=== PATIENT | female | born 1945 | race Caucasian/White ===

== ENCOUNTER 2017-01-30 11:46 | Inpatient (IN) | payer OTHER ==
[~2017-01-30 11:46] MED LIST: CHLORHEXIDINE GLUC HIBICLENS 118 ML BTL TP ONE; DEXAMETHASONE 10 MG/ML VIAL IVP ONE; ceFAZolin 2 GM/DEXTROSE 100 ML IV ONE
[2017-01-30] MEDS ORDERED: CEFAZOLIN 2 GM/DEXTROSE/100 ML BAG IV ONE (11:59)
[2017-01-30] MEDS ORDERED: DEXAMETHASONE 10 MG/ML VIAL ONE (12:00)
[2017-01-30] MEDS ORDERED: LIDOCAINE 1% 5 ML SDV ID PRN (12:34)
[2017-01-30] MEDS ORDERED: LR 1,000 ML IV ONE (12:34)
[2017-01-30 12:53] LABS: % IMMATURE GRANULYOCYTES 0.7 % (0.0-1.1); ABSOLUTE IMMATURE GRANULOCYTES 0.02 10^3/uL (0.00-0.10); ADD DIFF? NO; ADD MORPH? NO; ADD SCAN? NO; ATYPICAL LYMPHOCYTE FLAG 20 (0-99); FRAGMENT RBC FLAG 20 (0-99); HEMATOCRIT 42.3 % (38.0-47.0); HEMOGLOBIN 13.6 g/dL (12.6-16.3); LEFT SHIFT FLG 10 (0-99); LIPEMIA HEMOLYSIS FLAG 80 (0-99); MEAN CELL HEMOGLOBIN 29.1 pg (27.9-34.1); MEAN CELL HEMOGLOBIN CONCENTR. 32.2 g/dL (32.4-36.7); MEAN CELL VOLUME 90.4 fL (81.5-99.8); MEAN PLATELET VOLUME 12.1 fL (8.7-11.7); PLATELET CLUMPS FLAG 20 (0-99); PLATELET COUNT 136 10^3/uL (150-400); RED BLOOD CELL COUNT 4.68 10^6/uL (4.18-5.33); RED CELL DISTRIBUTION WIDTH 15.9 % (11.5-15.2)
[2017-01-30] MEDS ORDERED: THROMBIN (RECOMBINANT) 5,000 UNIT VIAL TP ONE (13:35)
[2017-01-30] MEDS ORDERED: BUPIVACAINE/EPI 0.25% 30 ML SDV ONE (13:35)
[2017-01-30] MEDS ORDERED: BUPIVACAINE 0.25% 30 ML SDV ONE (13:35)
[2017-01-30] MEDS ORDERED: BACITRACIN 50,000 UNITS/10 ML SYR IRR ONE (13:36)
[2017-01-30] MEDS ORDERED: MIDAZOLAM 2 MG/2 ML VIAL ONE (13:45)
[2017-01-30] MEDS ORDERED: PROPOFOL 200 MG/20 ML VIAL ONE ×2 (13:50→14:28)
[2017-01-30] MEDS ORDERED: HYDROmorphONE/DILAUDID 2 MG/ML INJ ONE (13:50)
[2017-01-30] MEDS ORDERED: LIDOCAINE 2% 5 ML SDV ONE (13:51)
[2017-01-30] MEDS ORDERED: ONDANSETRON 4 MG/2 ML VIAL ONE (15:09)
[2017-01-30] MEDS ORDERED: SUCCINYLCHOLINE CHLORIDE*ANESTHESIA ONLY*200 MG/10 ML SYR IVP ONE (15:09)
[2017-01-30] MEDS ORDERED: SURGIFLO MATRIX KIT WITH THROMBIN TP ONE (15:29)
[2017-01-30] MEDS ORDERED: LACTULOSE 20 GM/30 ML UDCUP PO PRN (16:13)
[2017-01-30] MEDS ORDERED: HYDROmorphONE/DILAUDID 1 MG/ML SYR IVP PRN (16:13)
[2017-01-30] MEDS ORDERED: ONDANSETRON 4 MG/2 ML VIAL IVP PRN (16:13)
[2017-01-30] MEDS ORDERED: BISACODYL 10 MG SUPP PR PRN (16:13)
[2017-01-30] MEDS ORDERED: ONDANSETRON DISINTEGRATING 4 MG TAB PO PRN (16:13)
[2017-01-30] MEDS ORDERED: diphenhydrAMINE 25 MG CAP PO PRN (16:13)
[2017-01-30] MEDS ORDERED: DIAZEPAM 10 MG/2 ML SYR IVP PRN (16:13)
[2017-01-30] MEDS ORDERED: MAGNESIUM HYDROXIDE 30 ML UDCUP PO PRN (16:13)
[2017-01-30] MEDS ORDERED: METHOCARBAMOL 750 MG TAB PO PRN (16:13)
[2017-01-30] MEDS ORDERED: NS W/ 20 KCl/L 1,000 ML IV SCH (16:15)
--- NOTE | 2017-01-30 16:19 | POSTOPPROG ---
Post Op Note Date of Operation: 01/30/17 Surgeon: Yuri [facility] [employer] Therapist: Jose M Anesthesiologist: Tatiana Anesthesia: GET(General Endotracheal) Pre-op Diagnosis: cervical stenosis Post-op Diagnosis: same Indication: mylepathy Procedure: C4/5, 5/6 ACDF Findings: DJD/stenosis Inf/Abcess present in the surg proc area at time of surgery?: No EBL: Minimal Complications: None Drains: Eduard Monet
--- NOTE | 2017-01-30 16:20 | SOAPPROG ---
CLAUDIA Progress Note Assessment/Plan: Assessment: 71 yo F sp C4/5, 5/6 ACDF Plan: stable hard collar for 6 weeks x-rays in am please call with neuro changes 01/30/17 16:19 Subjective: + neck pain, no arm pain. Objective: Laboratory Results 01/30/17 12:37 awake, alert PERRL, no facial droop JAMES x 4 + light touch ICD10 Worksheet Patient Problems: Problems Problem Status Onset Fusion of spine of cervical region Acute - ICD10 Problem Qualifiers (1) Fusion of spine of cervical region
[2017-01-30] MEDS ORDERED: fentaNYL 100 MCG/2 ML INJ ONE (16:31)
[2017-01-30] MEDS ORDERED: HYDROmorphONE/DILAUDID 1 MG/ML SYR ONE (16:31)
[2017-01-30] MEDS ORDERED: DIAZEPAM 10 MG/2 ML SYR ONE (16:47)
[2017-01-30] MEDS: traMADol 50 MG TAB PO SCH ×2 (17:44→20:43)
[2017-01-30] MEDS: DIAZEPAM 5 MG TAB PO PRN ×2 (17:44→23:48)
--- NOTE | 2017-01-30 19:49 | GOP ---
[f rep st] OPERATIVE REPORT DATE OF OPERATION: 01/30/2017 SURGEON: Yuri Miranda MD EDGE BASTER: Mitchel Salguero PA-C. ANESTHESIA: General endotracheal. PREOPERATIVE DIAGNOSIS: 1. Severe multilevel cervical spondylitic myelopathy. 2. Multilevel cervical degenerative disk disease and disk herniations with severe central canal lanette nosis and spinal cord compression. POSTOPERATIVE DIAGNOSIS: 1. Severe multilevel cervical spondylitic myelopathy. 2. Multilevel cervical degenerative disk disease and disk herniations with severe central canal lanette nosis and spinal cord compression. PROCEDURE PERFORMED: Partial C5 vertebral corpectomy with complete C4-5 and C5-6 anterior cervical diskectomy and arthrodesis with 2 structural PEEK interbody spacers and a local autograft. Placemen t of an L and K CastleLoc-P anterior cervical plate from C4 through C6. Use of intraoperative micro scopy and fluoroscopy. FINDINGS: ESTIMATED BLOOD LOSS: 100 cc. INDICATIONS: The patient is a 71-year-old woman with progressive myelopathic symptoms and multileve l cervical degenerative disk disease and disk herniations causing severe central canal stenosis and spinal cord compression. She presents now for multilevel cervical decompression stabilization. DESCRIPTION OF PROCEDURE: After informed consent was obtained, the patient was taken to the operati ng room and placed in the supine neutral position under her own control. Baseline neuro monitoring potentials were obtained as soon as the patient was intubated without any manipulation of her neck. After the baselines were obtained, the patient was positioned with the Halter retractor system and the anterior cervical region was prepped and draped in sterile fashion. A horizontal incision was then created at the level of the C5 vertebral body after fluoroscopic loca lization. This was carried through the platysmal layer using the monopolar electrocautery and haley ed in the avascular plane between the sternocleidomastoid and carotid sheath laterally and the strap muscles, trachea, and esophagus medially down to the prevertebral fascia, which was carefully incis ed with Metzenbaum scissors. The C4-5 and C5-6 interspaces were identified and re-verified using th e intraoperative fluoroscopy. Following this, complete diskectomies were performed with the 15 blade scalpel and the straight-angl ed curettes as well as the Kerrison rongeurs. There were very large osteophytes that required exten sive drilling and removal with the Kerrison rongeurs. There were very large posteriorly protruding osteophytes as well as the anteriorly protruding ones and these were removed along with posterior lo ngitudinal ligament. Approximately 50% of the C5 vertebral body was removed due to drilling at the superior and inferior endplates for a partial C5 vertebral corpectomy. Quite a bit of C4 and C6 wer e also removed, but not enough to be 50%. Following adequate decompression, the epidural space were copiously irrigated with antibiotic irriga tion. Meticulous hemostasis was achieved. Note that the patient was more oozy than normal and I us ed Floseal in addition the Gel-Foam soaked in thrombin for hemostasis. After preparation of the endplates, the interspaces were gently packed with the appropriately sized lordotically fashioned structural PEEK interbody spacers which were also packed with the local autog raft from the partial corpectomy and osteophytectomy to the center of the graft. Following verifica tion of good position using biplanar fluoroscopy, the distraction was removed and an appropriately s ized L and K CastleLoc-P anterior cervical plate was placed and secured with self-drilling screws. Following re-verification of good position of the plate screws and interbody spacers, the locking me chanisms were engaged. A drain was placed and the wound was infiltrated with the study drug for the dysphagia study. Half of it was placed at this point. The platysma was then closed with interrupted Vicryl sutures and th e remainder was injected at that point. The skin was then closed using a running Monocryl followed by Steri-Strips on the skin. COMPLICATIONS: None. DISPOSITION: The patient is currently in the process of being repositioned for extubation. Please note that the patient had very soft bone with not too great of screw purchase and because of this, I will place her in a hard collar for 6 weeks as well as a magnetic bone stimulator. /[id number]/MODL
[2017-01-30] MEDS: CETIRIZINE 10 MG TAB PO SCH (20:42)
[2017-01-30] MEDS: PREGABALIN 75 MG CAP PO SCH (20:42)
[2017-01-30] MEDS: HYDROCODONE/APAP 10/325 TAB PO PRN (20:42)
[2017-01-30] MEDS: POLYETHYLENE GLYCOL 3350 17 GM PKT PO SCH (20:44)
[2017-01-30] MEDS: SENNOSIDES/DOCUSATE SODIUM TAB PO SCH (20:44)
[2017-01-30] MEDS: FAMOTIDINE 20 MG/NACL 50 ML IV SCH (20:56)
[2017-01-30] MEDS ORDERED: traZODone 100 MG TAB PO SCH (21:00)
[2017-01-30] MEDS ORDERED: MELATONIN 3 MG TAB PO SCH (21:00)
[2017-01-30] MEDS: TACROLIMUS 1 MG CAP PO SCH (21:25)
[2017-01-30] MEDS: MYCOPHENOLATE SODIUM 360 MG PO SCH (21:26)
[2017-01-30] MEDS: ACETAMINOPHEN 325 MG TAB PO PRN (23:49)
[2017-01-31] MEDS: HYDROCODONE/APAP 10/325 TAB PO PRN ×2 (01:30→05:43)
[2017-01-31] MEDS: traMADol 50 MG TAB PO SCH ×3 (05:39→15:45)
[2017-01-31] MEDS: POLYETHYLENE GLYCOL 3350 17 GM PKT PO SCH ×3 (05:59→16:53)
[2017-01-31] MEDS: PREGABALIN 75 MG CAP PO SCH (08:24)
[2017-01-31] MEDS: SENNOSIDES/DOCUSATE SODIUM TAB PO SCH (08:24)
[2017-01-31] MEDS: OXYCODONE/APAP 5/325 TAB PO PRN ×4 (08:25→19:30)
[2017-01-31] MEDS: MYCOPHENOLATE SODIUM 360 MG PO SCH (08:35)
[2017-01-31] MEDS: FAMOTIDINE 20 MG/NACL 50 ML IV SCH (08:36)
--- NOTE | 2017-01-31 08:44 | SOAPPROG ---
SOAP Progress Note Assessment/Plan: Assessment: 71 yo F POD #1 C4/5, 5/6 ACDF Plan: stable hard collar for 6 weeks PT/OT likely remove drain today work on DC today x-rays today please call with neuro changes patient seen by Dr Palacio 01/30/17 16:19 01/31/17 08:43 Subjective: + neck pain and pain in posterior shoulders, no arm pain, no weakness Objective: Vital Signs Temp Pulse Resp BP Pulse Ox 37.0 C 74 17 136/73 H 94 01/31/17 08:16 01/31/17 08:16 01/31/17 08:16 01/31/17 08:16 01/31/17 08:16 Laboratory Results 01/30/17 12:37 01/30/17 01/31/17 02/01/17 05:59 05:59 05:59 Intake Total 1750 Output Total 450 Balance 1300 AAOX4, +FC PERRL, EOMI, no facial droop 5/5 + light touch C/D/I ICD10 Worksheet Patient Problems: Problems Problem Status Onset Fusion of spine of cervical region Acute - ICD10 Problem Qualifiers (1) Fusion of spine of cervical region
[2017-01-31] MEDS: TACROLIMUS 1 MG CAP PO SCH (08:48)
[2017-01-31] MEDS ORDERED: PANTOPRAZOLE SODIUM 40 MG TAB PO SCH (09:00)
[2017-01-31] MEDS ORDERED: predniSONE 5 MG TAB PO SCH (09:00)
[2017-01-31 11:59] VITALS: RESP 14
[2017-01-31] MEDS: ACETAMINOPHEN 325 MG TAB PO PRN (12:28)
[2017-01-31 15:55] VITALS: BP 125/65; PULSE 88; TEMP 98.6; O2SAT 92
[2017-01-31] MEDS: CETIRIZINE 10 MG TAB PO SCH (16:59)
[2017-02-02] MEDS ORDERED: ENOXAPARIN 40 MG/0.4 ML SYR SC SCH (09:00)
== END 2017-01-31 20:11 | disposition home or self-care (01) | DRG 472 ==
LOC: F3N 11:46
PROVIDERS: ADMIT Neurological Surgery; ATTEND Neurological Surgery
PROC: 0RB30ZZ Excision of Cervical Vertebral Disc, Open Approach (ICD-10-PCS; principal; 2017-01-30 14:15)
PROC: 0RG20J0 Fusion of 2 or more Cervical Vertebral Joints with Synthetic Substitute, Anterior Approach, Anterior Column, Open Approach (ICD-10-PCS; principal; 2017-01-30 14:15)
PROC: 00NW0ZZ Release Cervical Spinal Cord, Open Approach (ICD-10-PCS; principal; 2017-01-30 14:15)
PROC: 0PB30ZZ Excision of Cervical Vertebra, Open Approach (ICD-10-PCS; principal; 2017-01-30 14:15)
PROC: 0RG20A0 Fusion of 2 or more Cervical Vertebral Joints with Interbody Fusion Device, Anterior Approach, Anterior Column, Open Approach (ICD-10-PCS; principal; 2017-01-30 14:15)
DX: M50.30 Other cervical disc degeneration, unspecified cervical region (principal); M50.021 Cervical disc disorder at C4-C5 level with myelopathy; M47.12 Other spondylosis with myelopathy, cervical region; M48.02 Spinal stenosis, cervical region; M51.37 Other intervertebral disc degeneration, lumbosacral region; Z94.0 Kidney transplant status
CPT/HCPCS: 97161-GP; 97166-GO; 97535-GO; C1713; G8978-GP-CI; G8979-GP-CI; G8980-GP-CI; G8987-GO-CI; G8988-GO-CI; J0330; J0690; J1170; J2250; J2405; J2704; J3010; J7507

== ENCOUNTER 2017-07-20 06:17 | Inpatient (IN) | payer OTHER ==
[2017-07-20] MEDS ORDERED: LR 1,000 ML IV ONE (06:31)
[2017-07-20] MEDS ORDERED: LIDOCAINE 1% 2 ML INJ ID PRN (06:31)
--- NOTE | 2017-07-20 06:51 | PDANEPAE ---
ANE History of Present Illness lumbar DDD, spinal stenosis ANE Past Medical History - Cardiovascular History Hx Hypertension: No Hx Arrhythmias: No Hx Chest Pain: No Hx Coronary Artery / Peripheral Vascular Disease: No Hx CHF / Valvular Disease: No Hx Palpitations: No Cardiovascular History Comment: occassional heart murmur - Pulmonary History Hx COPD: No Hx Asthma/Reactive Airway Disease: No Hx Recent Upper Respiratory Infection: No Hx Oxygen in Use at Home: No Hx Sleep Apnea: Yes Pulmonary History Comment: h/o PNA x3 in 20 months [id number]. viral infection 2016 - Neurologic History Hx Cerebrovascular Accident: No Hx Seizures: No Hx Dementia: No Neurologic History Comment: Balance issue - Endocrine History Hx Diabetes: No Endocrine History Comment: elevated blood sugar 2000, weight was 80lbs higher - Renal History Hx Renal Disorders: Yes Renal History Comment: kidney transplant 2015 - Liver History Hx Hepatic Disorders: No - Neurological & Psychiatric Hx Hx Neurological and Psychiatric Disorders: Yes Neurological / Psychiatric History Comment: insomnia - Cancer History Hx Cancer: Yes Cancer History Comment: Melanoma nose-removed. - Congenital Disorder History Hx Congenital Disorders: No - GI History Hx Gastrointestinal Disorders: Yes Gastrointestinal History Comment: gastric bypass 2005 - Other Health History Other Health History: missing tooth. bruise easily - Chronic Pain History Chronic Pain: Yes (back pain has trouble standing) - Surgical History Prior Surgeries: kidney transplant -2015. UMBILICAL HERNIA REPAIR. tonsillectomy at 6 years old. stomach bypass 11/2005. 2 carpal tunnel surgeries 2000 bilaterally. 6 trigger finger releases. breast implant and lift and tummy tuck- mommy makeover. right shoulder surgery. 2011- knee scope. lumbar fusion l4-5 with staph infection. debridement ANE Review of Systems - Exercise capacity METS (RN): 4 METS ANE Patient History - Allergies Allergies/Adverse Reactions: No Known Allergies Allergy (Verified 01/25/17 14:11) - Home Medications Home medications: home medication list seen and reviewed Home Medications: Cetirizine [ZyrTEC 10 mg (*)] 10 mg PO HS 08/18/15 [Last Taken 07/19/17 12:00] Melatonin [Melatonin 3 MG (*)] 9 mg PO HS 08/18/15 [Last Taken 07/19/17 00:00] traMADol [Ultram 50 mg (*)] 50 mg PO QID 08/18/15 [Last Taken 07/19/17 22:00] traZODone [traZODONE 100MG (*)] 50 - 100 mg PO HS 08/18/15 [Last Taken 07/19/17] Mycophenolate Sodium [Myfortic] 360 mg PO BID 01/24/17 [Last Taken 07/19/17 00: 00] Pantoprazole Sodium [Protonix 40mg (*)] 40 mg PO DAILY 01/24/17 [Last Taken 12:00] Pregabalin [Lyrica 75mg (*)] 75 mg PO BID 01/24/17 [Last Taken 07/19/17 00:00] Tacrolimus Anhydrous [Prograf 0.5 MG (*)] 3 mg PO BID 01/24/17 [Last Taken 07/19 00:00] predniSONE 5 mg PO DAILY 01/24/17 [Last Taken 07/19/17 12:00] Jenkinjones-3 06/16/17 [Last Taken 07/16/17] Vitamin B Complex 06/16/17 [Last Taken Unknown] Vitamin D3 06/16/17 [Last Taken 07/17/17] - Smoking Hx Smoking Status: Former smoker - Family Anes Hx Family Hx Anesthesia Complications: none ANE Labs/Vital Signs - Vital Signs Height: 162.56 cm Weight: 62.596 kg ANE Physical Exam - Airway Neck exam: FROM Mallampati Score: Class 1 Mouth exam: normal dental/mouth exam - Pulmonary Pulmonary: no respiratory distress - Cardiovascular Cardiovascular: regular rate and rhythym - ASA Status ASA Status: III ANE Anesthesia Plan Anesthesia Plan: general endotracheal anesthesia Lines/Monitors: arterial line
[2017-07-20] MEDS ORDERED: THROMBIN (BOVINE) 5,000 UNIT VIAL TP ONE ×3 (07:00→12:04)
[2017-07-20] MEDS ORDERED: ceFAZolin 2 GM/DEXTROSE 100 ML IV ONE (07:00)
[2017-07-20] MEDS ORDERED: ACETAMINOPHEN 500 MG TAB PO ONE (07:00)
[2017-07-20] MEDS ORDERED: TRANEXAMIC ACID 1,000 MG in NS 100 ML IV ONE (07:00)
[2017-07-20] MEDS ORDERED: CITRATE DEXTROSE SOLN 500 ML BAG ONE ×3 (07:00→12:30)
[2017-07-20] MEDS ORDERED: morphINE PF 5 MG/10 ML INJ IT ONE (07:00)
[2017-07-20] MEDS ORDERED: GABAPENTIN 300 MG CAP PO ONE (07:00)
[2017-07-20] MEDS ORDERED: fentaNYL 100 MCG/2 ML INJ IT ONE (07:00)
[2017-07-20] MEDS ORDERED: BUPIVACAINE 0.25% 30 ML SDV ONE (07:00)
[2017-07-20] MEDS ORDERED: DEXAMETHASONE 10 MG/ML VIAL IVP ONE (07:00)
--- NOTE | 2017-07-20 07:00 | PDHPUP ---
History & Physical Update H&P update statement: This history and physical update is based on an assessment of the patient which was completed after admission or registration (within 24 hours), but prior to the surgery/procedure. H&P update: H&P reviewed & patient examined, no change in patient's condition since H&P completed
[2017-07-20] MEDS ORDERED: PROPOFOL/EMULSION 500 MG/50 ML BOTTLE IV ONE ×3 (07:01→12:40)
[2017-07-20] MEDS ORDERED: REMIFENTANIL HCL 1 MG VIAL ONE ×3 (07:01→12:27)
[2017-07-20] MEDS ORDERED: fentaNYL 100 MCG/2 ML INJ ONE ×3 (07:01→14:34)
[2017-07-20] MEDS ORDERED: PROPOFOL 200 MG/20 ML VIAL ONE (07:01)
[2017-07-20] MEDS ORDERED: BACITRACIN 50,000 UNITS/10 ML SYR IRR ONE ×3 (07:01→11:45)
[2017-07-20] MEDS ORDERED: HYDROmorphONE/DILAUDID 2 MG/ML INJ ONE (08:34)
[2017-07-20 10:03] LABS: HEMATOCRIT 33.9 % (38.0-47.0); HEMOGLOBIN 11.3 g/dL (12.6-16.3)
[2017-07-20] MEDS ORDERED: THROMBIN (BOVINE) 20,000 UNIT VIAL TP ONE ×2 (10:24→12:13)
[2017-07-20 10:27] LABS: ALBUMIN 2.9 g/dL (3.5-5.0); ASPARTATE AMINOTRANSFERASE 19 IU/L (14-46); BILIRUBIN,TOTAL 0.3 mg/dL (0.1-1.4); CARBON DIOXIDE 24 mEq/l (22-31); CHLORIDE 104 mEq/L (97-110); CREATININE 0.8 mg/dL (0.6-1.0); GLOMERULAR FILTRATION RATE > 60; GLUCOSE 96 mg/dL (70-100); LACTATE DEHYDROGENASE 265 IU/L (313-618); MAGNESIUM 1.4 mg/dL (1.6-2.3); POTASSIUM 3.7 mEq/L (3.5-5.2); SODIUM 135 mEq/L (134-144)
[2017-07-20 11:47] LABS: % IMMATURE GRANULYOCYTES 1.7 % (0.0-1.1); ABSOLUTE IMMATURE GRANULOCYTES 0.13 10^3/uL (0.00-0.10); ADD DIFF? NO; ADD MORPH? NO; ADD SCAN? NO; ATYPICAL LYMPHOCYTE FLAG 0 (0-99); FRAGMENT RBC FLAG 20 (0-99); HEMATOCRIT 32.8 % (38.0-47.0); HEMOGLOBIN 10.8 g/dL (12.6-16.3); LEFT SHIFT FLG 10 (0-99); LIPEMIA HEMOLYSIS FLAG 80 (0-99); MEAN CELL HEMOGLOBIN CONCENTR. 32.9 g/dL (32.4-36.7); MEAN CELL VOLUME 87.9 fL (81.5-99.8); MEAN PLATELET VOLUME 11.6 fL (8.7-11.7); PLATELET CLUMPS FLAG 10 (0-99); PLATELET COUNT 165 10^3/uL (150-400); RED BLOOD CELL COUNT 3.73 10^6/uL (4.18-5.33); RED CELL DISTRIBUTION WIDTH 15.1 % (11.5-15.2)
[2017-07-20 11:59] LABS: ALANINE AMINOTRANSFERASE 25 IU/L (9-52); ALBUMIN 2.8 g/dL (3.5-5.0); ALKALINE PHOSPHATASE 42 IU/L (38-126); ANION GAP 8 mEq/L (8-16); ASPARTATE AMINOTRANSFERASE 25 IU/L (14-46); BILIRUBIN,TOTAL 0.4 mg/dL (0.1-1.4); CALCIUM 8.4 mg/dL (8.5-10.4); CARBON DIOXIDE 23 mEq/l (22-31); CHLORIDE 106 mEq/L (97-110); CREATININE 0.8 mg/dL (0.6-1.0); GLOMERULAR FILTRATION RATE > 60; GLUCOSE 126 mg/dL (70-100); LACTATE DEHYDROGENASE 424 IU/L (313-618); MAGNESIUM 1.3 mg/dL (1.6-2.3); POTASSIUM 3.9 mEq/L (3.5-5.2); SODIUM 137 mEq/L (134-144); TOTAL PROTEIN 4.6 g/dL (6.3-8.2)
[2017-07-20] MEDS ORDERED: ceFAZolin 1 GM VIAL ONE (12:10)
[2017-07-20 12:42] LABS: HEMATOCRIT 35.5 % (38.0-47.0); HEMOGLOBIN 11.9 g/dL (12.6-16.3)
[2017-07-20 13:00] LABS: ALANINE AMINOTRANSFERASE 25 IU/L (9-52); ALBUMIN 2.5 g/dL (3.5-5.0); ALKALINE PHOSPHATASE 36 IU/L (38-126); ANION GAP 8 mEq/L (8-16); ASPARTATE AMINOTRANSFERASE 24 IU/L (14-46); BILIRUBIN,TOTAL 0.5 mg/dL (0.1-1.4); CALCIUM 7.9 mg/dL (8.5-10.4); CARBON DIOXIDE 21 mEq/l (22-31); CHLORIDE 108 mEq/L (97-110); CREATININE 0.8 mg/dL (0.6-1.0); GLOMERULAR FILTRATION RATE > 60; GLUCOSE 148 mg/dL (70-100); POTASSIUM 4.1 mEq/L (3.5-5.2); SODIUM 137 mEq/L (134-144); TOTAL PROTEIN 4.3 g/dL (6.3-8.2)
[2017-07-20] MEDS ORDERED: morphINE PF 5 MG/10 ML INJ ONE (13:06)
[2017-07-20] MEDS ORDERED: ALBUMIN 5% 250 ML BOTTLE IV ONE ×2 (13:16→22:16)
[2017-07-20 13:46] LABS: HEMOGLOBIN 11.9 g/dL (12.6-16.3)
[2017-07-20 13:55] LABS: INR 1.32 (0.83-1.16); PROTIME(PATIENT) 16.4 SEC (12.0-15.0)
[2017-07-20 13:56] LABS: APTT 34.9 SEC (23.0-38.0)
[2017-07-20] MEDS ORDERED: diphenhydrAMINE 25 MG CAP PO PRN (14:07)
[2017-07-20] MEDS ORDERED: LACTULOSE 20 GM/30 ML UDCUP PO PRN (14:07)
[2017-07-20] MEDS ORDERED: MAGNESIUM HYDROXIDE 30 ML UDCUP PO PRN (14:07)
[2017-07-20] MEDS ORDERED: BISACODYL 10 MG SUPP PR PRN (14:07)
[2017-07-20] MEDS ORDERED: NALOXONE HCL 0.4 MG/ML INJ IVP PRN ×2 (14:07→14:32)
[2017-07-20] MEDS ORDERED: ONDANSETRON DISINTEGRATING 4 MG TAB PO PRN (14:07)
[2017-07-20] MEDS ORDERED: ONDANSETRON 4 MG/2 ML VIAL IVP PRN ×2 (14:07→14:32)
--- NOTE | 2017-07-20 14:13 | SOAPPROG ---
SOAP Progress Note Assessment/Plan: Assessment: 71 yo F sp L1-L5 fusion with L3/4 TLIF, L4 wedge osteotomy Plan: neuro: stable to ICU for overnight observation PT/OT lovenox starts POD #1 Mauricio Malhotra to fit LSO brace please call with neuro changes 07/20/17 14:11 Subjective: + back pain, no leg pain Objective: Vital Signs Temp Pulse Resp BP Pulse Ox 36.6 C 68 14 113/68 96 07/20/17 06:58 07/20/17 06:58 07/20/17 06:58 07/20/17 06:58 07/20/17 06:58 Laboratory Results 07/20/17 13:36 07/20/17 12:32 PT 16.4 SEC (12.0-15.0) H 07/20/17 13:36 INR 1.32 (0.83-1.16) H 07/20/17 13:36 somnolent PERRL, no facial droop 5/5 + light touch ICD10 Worksheet Patient Problems: Problems Problem Status Onset Fusion of spine of lumbar region Acute Fusion of spine of cervical region Acute - ICD10 Problem Qualifiers (1) Fusion of spine of lumbar region
[2017-07-20] MEDS ORDERED: PROMETHAZINE HCL 25 MG/ML INJ IVP PRN (14:32)
[2017-07-20] MEDS ORDERED: ACETAMINOPHEN 500 MG TAB PO PRN (14:32)
--- NOTE | 2017-07-20 14:32 | POSTANESTH ---
Post Anesthetic Evaluation Cardiovascular Status: Normal, Stable Respiratory Status: Normal, Stable Level of Consciousness/Mental Status: Can Participate in Eval Pain Control: Adequate, Prn Tx Ordered Nausea/Vomiting Control: Adequate, Prn Tx Ordered Complications Possibly Related to Anesthesia: None Noted
[2017-07-20] MEDS: fentaNYL 100 MCG/2 ML INJ IVP PRN ×2 (14:36→14:45)
[2017-07-20] MEDS ORDERED: DIAZEPAM 10 MG/2 ML SYR ONE (14:49)
[2017-07-20] MEDS ORDERED: HYDROmorphONE/DILAUDID 1 MG/ML SYR ONE (15:08)
[2017-07-20] MEDS: HYDROmorphONE/DILAUDID 1 MG/ML SYR IVP PRN ×2 (15:10→15:37)
--- NOTE | 2017-07-20 15:36 | GOP ---
[f rep st] OPERATIVE REPORT DATE OF OPERATION: 07/20/2017 SURGEON: Yuri Miranda MD NEUROSURGEON: Yuri Miranda MD DIRECTOR SOFTWARE QUALITY ASSURANCE: XIMENA Arango ANESTHESIA: General endotracheal. PREOPERATIVE DIAGNOSIS: Flat back syndrome with intractable back pain secondary to loss of normal s agittal alignment, status post instrumentation and fusion in the past. Failed conservative care. 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 Failed conservative care. PROCEDURE PERFORMED: Removal of L4-5 posterior nonsegmental (pedicle screw) fixation with explorati on of spinal fusion and re-instrumentation from L1 through L5 with pedicle screws and axle device. Left-sided L2-3 and L3-4 far lateral transpedicular decompression with L2-3 and L3-4 posterior/trans foraminal lumbar interbody fusion with 2 structural PEEK interbody spacers, local autograft and bone morphogenic protein. L4 pedicle subtraction osteotomy for reduction of fixed kyphotic deformity. Use of intraoperative microscopy, fluoroscopy and computer volumetric stereotactic navigation with i ntraoperative neurophysiologic testing. Injection of intrathecal narcotic analgesics and subcutaneo us and intramuscular local anesthesia for postoperative pain control. FINDINGS: ESTIMATED BLOOD LOSS: 1200 cc INDICATIONS: The patient is a 71-year-old woman with intractable back pain, status post prior lumba r decompression and fusion. She was fused into a kyphotic position with subsequent flat back syndro me and failed conservative care with intractable back pain. She presents now for removal of the kena or hardware and extension rostrally with a decompression and stabilization with pedicle subtraction osteotomy and reduction of her fixed kyphotic deformity. DESCRIPTION OF PROCEDURE: After informed consent was obtained, the patient was taken to the operati ng room and placed in the prone position on the Eduard table. The thoracolumbosacral area was prep ped and draped in a sterile fashion. After fluoroscopic localization of correct levels, the subcuta neous and intramuscular tissues were infiltrated with local anesthesia. A midline linear incision was then created from approximately L1 through L5. This was carried down to the fascial layer, which was then incised using monopolar electrocautery and carried in the subpe riosteal plane along the spinous processes and lamina bilaterally. Note that there was an extensive amount of scar tissue that required very careful and meticulous dissection in order to avoid a CSF leak. Eventually, all areas were carefully exposed and the biplanar fluoroscopic images were sent t o the [facility] station. Using computer volumetric stereotactic navigation, pedicle screws were place d at L1, L2, L3, L4 and L5 bilaterally. Each individual screw was tested neurophysiologically with monopolar electrostimulation and interpretation of the potentials by the surgeon. Note that the kena or surgical area at L4-5 was exposed before this, and the posterior nonsegmental (pedicle screw) fix ation was carefully removed. Following placement of the pedicle screws, the microscope was brought in and the left-sided far late ral transpedicular decompressions were performed at the L2-3 and L3-4 levels. The complete diskecto mies were performed under high-power microscopy with the levels under distraction. The endplates we re carefully prepared and an appropriately sized structural PEEK interbody spacers, local autograft and bone morphogenic protein was placed in the interbody levels at L2-3 and L3-4 for posterior/trans foraminal lumbar interbody fusion at this level. The rods were then removed and following this, und er high-power microscopy, the joints were completely removed at L4-5. I had anticipated performing the osteotomy at L3-4, but the exposure was significantly less, and difficult and risky from the sta ndpoint of getting a CSF leak. There was quite a bit of scar tissue at the L3-4 level, and the dura was very stuck down. I felt that it was in the best interest of the patient to perform the wide la minectomies and facetectomies at L4-5, even though there would only be 1 point of fixation below the osteotomy at L5. I thought that the risk of getting a CSF leak or having other problems performing the osteotomy up higher was more than the screw at this point because I got very solid fixation at L5 bilaterally. Following the wide laminectomies and facetectomies bilaterally at L3, L4; the L4 pedicles were caref ully drilled out using the coarse bubba bur. This was performed in a wedge-shaped fashion and the fulcrum of intact cortical bone anteriorly along with the PEEK interbody spacer was utilized to cre ate a significant amount of lordosis by reducing the interpedicular distance posteriorly. After dri lling out the area in a wedge-shape fashion and getting ready to collapse it down, some local autogr aft along with bone morphogenic protein was placed anteriorly at the osteotomy level for the fusion. The rods were then contoured and placed, and secured for maximal lordosis. These were secured wit h locking caps and 1 axle device was placed at L1-2 in order to hopefully prevent any junctional kyp hosis and hardware failure at the upper level. Following this, the wound was copiously irrigated and with irrigation, meticulous hemostasis was ach ieved. The remaining lamina and facet joints were then extensively decorticated from L1 through L5, and the residual local autograft along with bone morphogenic protein was placed out laterally for a n L1 through L5 posterolateral fusion. A drain was placed. The subcutaneous and intramuscular tiss ues were infiltrated with local anesthesia. 200 mcg of Duramorph along with 50 mcg of fentanyl was injected intrathecally for postoperative pain control. The wound was then closed in a layered fashi on using interrupted Vicryl sutures followed by Steri-Strips on the skin. COMPLICATIONS: None. DISPOSITION: The patient was extubated and transferred to the recovery room in stable condition. /[id number]/MODL
[2017-07-20] MEDS: oxyCODONE IR 5 MG TAB PO PRN (16:44)
[2017-07-20] MEDS: morphINE PCA 30 MG/30 ML PCA IV PRN (16:46)
[2017-07-20] MEDS: NS 1,000 ML IV SCH (16:54)
[2017-07-20] MEDS: POLYETHYLENE GLYCOL 3350 17 GM PKT PO SCH ×2 (17:13→20:28)
[2017-07-20] MEDS ORDERED: predniSONE 5 MG TAB PO SCH (17:15)
[2017-07-20] MEDS: traMADol 50 MG TAB PO PRN (17:17)
[2017-07-20] MEDS: MYCOPHENOLATE SODIUM 360 MG PO SCH (17:20)
[2017-07-20] MEDS: predniSONE 5 MG TAB PO SCH (17:20)
[2017-07-20] MEDS ORDERED: TACROLIMUS 1 MG CAP PO SCH (18:00)
[2017-07-20 18:02] LABS: % IMMATURE GRANULYOCYTES 1.6 % (0.0-1.1); ABSOLUTE IMMATURE GRANULOCYTES 0.19 10^3/uL (0.00-0.10); ADD DIFF? NO; ADD MORPH? NO; ADD SCAN? NO; ATYPICAL LYMPHOCYTE FLAG 0 (0-99); FRAGMENT RBC FLAG 0 (0-99); HEMATOCRIT 32.8 % (38.0-47.0); HEMOGLOBIN 11.2 g/dL (12.6-16.3); LEFT SHIFT FLG 40 (0-99); LIPEMIA HEMOLYSIS FLAG 90 (0-99); MEAN CELL HEMOGLOBIN 29.9 pg (27.9-34.1); MEAN CELL HEMOGLOBIN CONCENTR. 34.1 g/dL (32.4-36.7); MEAN CELL VOLUME 87.7 fL (81.5-99.8); MEAN PLATELET VOLUME 12.5 fL (8.7-11.7); PLATELET CLUMPS FLAG 10 (0-99); PLATELET COUNT 107 10^3/uL (150-400); RED BLOOD CELL COUNT 3.74 10^6/uL (4.18-5.33); RED CELL DISTRIBUTION WIDTH 14.7 % (11.5-15.2)
[2017-07-20] MEDS ORDERED: DIAZEPAM 10 MG/2 ML SYR IVP ONE (19:00)
[2017-07-20] MEDS: PREGABALIN 50 MG CAP PO SCH (20:27)
[2017-07-20] MEDS: CETIRIZINE 10 MG TAB PO SCH (20:28)
[2017-07-20] MEDS: SENNOSIDES/DOCUSATE SODIUM TAB PO SCH (20:28)
[2017-07-20] MEDS: MELATONIN 3 MG TAB PO SCH (20:28)
[2017-07-20] MEDS: traZODone 100 MG TAB PO SCH (20:28)
[2017-07-20] MEDS: morphINE SR 15 MG TAB PO SCH (20:29)
[2017-07-20] MEDS: ceFAZolin 2 GM/DEXTROSE 100 ML IV SCH (20:52)
[2017-07-20] MEDS ORDERED: PREGABALIN 75 MG CAP PO SCH (21:00)
[2017-07-20 21:03] LABS: HEMOGLOBIN 10.3 g/dL (12.6-16.3)
[2017-07-20] MEDS ORDERED: ALBUMIN 5% 250 ML IV ONE (22:30)
[2017-07-20] MEDS ORDERED: MELATONIN 3 MG TAB PO SCH (23:45)
[2017-07-20] MEDS ORDERED: HYDROCORTISONE 100 MG/2 ML VIAL IVP ONE (23:55)
[2017-07-21] MEDS: NS 1,000 ML IV SCH ×2 (00:12→10:25)
--- NOTE | 2017-07-21 01:03 | GCON ---
[f rep st] CONSULTATION INTERNAL MEDICINE CONSULTATION DATE OF CONSULTATION: 07/20/2017 REFERRING PHYSICIAN: Yuri Miranda MD REASON FOR CONSULTATION: Medical opinion regarding perioperative management of medical issues inclu ding status post kidney transplant. HISTORY OF PRESENT ILLNESS: The patient is a 71-year-old female with flat back syndrome and intract able back pain. She failed conservative care. She underwent surgery earlier today with Dr. Caren pennington including removal of her prior lumbar fusion hardware and reduction of a fixed kyphotic defor mity. Postoperatively, I am seeing her in ICU. She was successfully extubated. She is really doing quite well and just has some anticipated postoperative back pain. She otherwise is completely without co mplaint and only requested that she have some assistance with repositioning. There was no chest salas n or shortness of breath. PAST MEDICAL HISTORY: 1. Kidney transplant in 2016. Prior to that, she had end-stage renal disease, on dialysis. 2. Diabetes type 2. 3. Peripheral neuropathy. PAST SURGICAL HISTORY: 1. Cervical and lumbar fusion. 2. Gastric bypass surgery. MEDICATIONS: Please see computer record for full detailed list. ALLERGIES: No known drug allergies. SOCIAL HISTORY: Quit smoking at age 30. Rare alcohol. She lives with her . REVIEW OF SYSTEMS: Complete review of systems obtained. Review of systems are negative regarding c onstitutional, HEENT, GI, pulmonary, cardiovascular, , hematology, skin, musculoskeletal, endocrin e, psych except for positives and negatives as noted in HPI. FAMILY HISTORY: Reviewed. Noncontributory to presenting complaint. PHYSICAL EXAMINATION: GENERAL: Well-developed, well-nourished female, in no distress. VITAL SIGNS : Temperature is 37.4, pulse 79, blood pressure 90/42, saturating 98% on 2 L. EYES: Normal conjun ctivae. Pupils equal and react to light. ENT: Normal ears, nose. Hearing intact. Normal lips an d teeth. Oropharynx moist. NECK: Trachea midline. No thyromegaly. CHEST: Normal effort. LUNGS : Clear to auscultation bilaterally. CARDIOVASCULAR: Regular rhythm. No murmur. No lower extrem ity edema. ABDOMEN: Soft, nontender. No hepatosplenomegaly. SKIN: Warm, dry, intact. No rash. MUSCULOSKELETAL: No cyanosis or clubbing. Strength 5/5 upper and lower extremities. NEUROLOGIC: Cranial nerves intact. Normal sensation to light touch. PSYCH: Alert and oriented x3. Normal af fect. Normal judgment. Normal memory. LABORATORY DATA: White count 11.96, hematocrit 31.0, platelets 107. Sodium 137, potassium 4.1, chl oride 108, bicarb 21, BUN 23, creatinine 0.8, glucose 148. INR is 1.3. Telemetry reviewed showing normal sinus rhythm. Medical records reviewed. I summarized the above. She did have previous hospitalizations here for complications regarding fistula management when she was still getting dialysis prior to her kidney t ransplant. ASSESSMENT/PLAN: 1. Lumbar fusion revision. Management per Neurosurgery. 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 2. Hypotension with chronic steroid use. Her blood pressure is a little low at 90/42. Her prednis one dose of 5 mg every morning is a dose where perioperative stress dose steroids should be consider ed. Given her hypotension, I will give a 1 time dose of hydrocortisone 50 mg IV tonight and that, h opefully, we can just maintain her back on her usual prednisone dose starting tomorrow morning. 3. Status post kidney transplant. Prior history of end-stage renal disease. We will continue her usual immunosuppressive regimen including Prograf, mycophenolate and prednisone. 4. Diabetes type 2. She appears to be diet-controlled at this time. This will be monitored. Thank you very much for this consultation. Internal Medicine will continue to follow throughout her hospitalization. /[id number]/MODL
[2017-07-21] MEDS: oxyCODONE IR 5 MG TAB PO PRN ×4 (01:56→17:47)
[2017-07-21] MEDS: morphINE PCA 30 MG/30 ML PCA IV PRN ×2 (02:04→14:04)
[2017-07-21 05:18] LABS: % IMMATURE GRANULYOCYTES 1.2 % (0.0-1.1); ABSOLUTE IMMATURE GRANULOCYTES 0.13 10^3/uL (0.00-0.10); ADD DIFF? NO; ADD MORPH? NO; ADD SCAN? NO; ATYPICAL LYMPHOCYTE FLAG 0 (0-99); FRAGMENT RBC FLAG 0 (0-99); HEMATOCRIT 28.4 % (38.0-47.0); HEMOGLOBIN 9.5 g/dL (12.6-16.3); LEFT SHIFT FLG 10 (0-99); LIPEMIA HEMOLYSIS FLAG 80 (0-99); MEAN CELL HEMOGLOBIN CONCENTR. 33.5 g/dL (32.4-36.7); MEAN CELL VOLUME 89.6 fL (81.5-99.8); MEAN PLATELET VOLUME 12.5 fL (8.7-11.7); PLATELET CLUMPS FLAG 0 (0-99); PLATELET COUNT 104 10^3/uL (150-400); RED BLOOD CELL COUNT 3.17 10^6/uL (4.18-5.33); RED CELL DISTRIBUTION WIDTH 15.2 % (11.5-15.2)
[2017-07-21 05:39] LABS: ANION GAP 6 mEq/L (8-16); CALCIUM 8.7 mg/dL (8.5-10.4); CARBON DIOXIDE 23 mEq/l (22-31); CHLORIDE 108 mEq/L (97-110); CREATININE 0.8 mg/dL (0.6-1.0); GLOMERULAR FILTRATION RATE > 60; GLUCOSE 133 mg/dL (70-100); POTASSIUM 4.4 mEq/L (3.5-5.2); SODIUM 137 mEq/L (134-144)
[2017-07-21] MEDS: ceFAZolin 2 GM/DEXTROSE 100 ML IV SCH (06:04)
[2017-07-21] MEDS: MYCOPHENOLATE SODIUM 360 MG PO SCH (06:04)
[2017-07-21] MEDS: TACROLIMUS 1 MG CAP PO SCH ×2 (06:05→18:11)
--- NOTE | 2017-07-21 08:51 | SOAPPROG ---
SOAP Progress Note Assessment/Plan: Assessment: POD #1 s/p L1-5 fusion with L3/4 TLIF and L4 wedge osteotomy Doing well. Pain controlled Plan: DARBY chaves Transfer to floor Continue PRINCESS drain PT/OT as tolerated Lovenox starts today. D/W Dr. Palacio 07/21/17 08:48 07/21/17 08:50 Subjective: out of bed in chair. Pain well controlled. denies numbness, tingling or weakness Objective: Vital Signs Temp Pulse Resp BP Pulse Ox 37.3 C 71 11 L 110/43 L 98 07/21/17 04:00 07/21/17 06:03 07/21/17 06:03 07/21/17 06:03 07/21/17 06:03 Laboratory Results 07/21/17 05:00 07/21/17 05:00 07/20/17 07/21/17 07/22/17 05:59 05:59 05:59 Intake Total 7044 Output Total 5255 Balance 1789 PT 16.4 SEC (12.0-15.0) H 07/20/17 13:36 INR 1.32 (0.83-1.16) H 07/20/17 13:36 ICD10 Worksheet Patient Problems: Problems Problem Status Onset Fusion of spine of lumbar region Acute Fusion of spine of cervical region Acute
[2017-07-21] MEDS: PREGABALIN 50 MG CAP PO SCH ×2 (09:10→21:36)
[2017-07-21] MEDS: morphINE SR 15 MG TAB PO SCH ×2 (09:10→21:37)
[2017-07-21] MEDS: ENOXAPARIN 40 MG/0.4 ML SYR SC SCH (09:12)
[2017-07-21] MEDS: PANTOPRAZOLE SODIUM 40 MG TAB PO SCH (09:12)
[2017-07-21] MEDS: CALCIUM CARBONATE 500 MG TAB PO SCH ×2 (09:12→21:36)
[2017-07-21] MEDS: SODIUM BICARBONATE 650 MG TAB PO SCH (09:12)
[2017-07-21] MEDS: POLYETHYLENE GLYCOL 3350 17 GM PKT PO SCH ×3 (09:12→21:37)
[2017-07-21] MEDS: SENNOSIDES/DOCUSATE SODIUM TAB PO SCH ×2 (09:12→21:35)
[2017-07-21] MEDS ORDERED: MYCOPHENOLATE SODIUM 180 MG TAB.DR PO SCH (10:00)
[2017-07-21] MEDS: METHOCARBAMOL 750 MG TAB PO PRN ×2 (10:02→16:09)
[2017-07-21] MEDS: predniSONE 5 MG TAB PO SCH (12:33)
[2017-07-21] MEDS: DIAZEPAM 5 MG TAB PO PRN (12:36)
[2017-07-21] MEDS: PRASTERONE 25 MG PO SCH (14:59)
--- NOTE | 2017-07-21 16:13 | HOSPPROG ---
Hospitalist Progress Note Assessment/Plan: Assessment: 71-year-old female with lumbar spine fusion complicated by postoperative hypertension, previous renal transplant Plan: 1. Hypotension. 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 Acute blood loss anemia. Evidenced by hemoglobin 9.5, with an initial hemoglobin of 11.9, status post surgery, no evidence of ongoing blood loss -continue monitor hemoglobin level daily -does not require blood transfusion at this time 3. Lumbar fusion. Postop day 1, pain control under the primary service neurosurgical service, has ongoing morphine [employer] 4. Renal transplant. On chronic immunosuppression, continue home medications, have been appropriately reconciled 5. Thrombocytopenia. Platelet level from 160,000 to 100,000, continue to monitor daily. Hospital Medicine will continue to consult in this patient's daily care, please contact us for any acute medical issues. Subjective: Patient is currently resting comfortably Objective: Vital Signs Temp Pulse Resp BP Pulse Ox 37.2 C 108 H 16 112/47 L 98 07/21/17 14:47 07/21/17 14:47 07/21/17 14:47 07/21/17 14:47 07/21/17 14:47 Laboratory Results 07/21/17 05:00 07/21/17 05:00 07/20/17 07/21/17 07/22/17 05:59 05:59 05:59 Intake Total 7044 Output Total 5255 110 Balance 1789 -110 PT 16.4 SEC (12.0-15.0) H 07/20/17 13:36 INR 1.32 (0.83-1.16) H 07/20/17 13:36 - Physical Exam Constitutional: no apparent distress, appears nourished, not in pain Cardiovascular: regular rate and rhythym, no murmur, rub, or gallop, No edema Respiratory: no respiratory distress, no rales or rhonchi, clear to auscultation Gastrointestinal: normoactive bowel sounds, soft, non-tender abdomen, no palpable masses Neurologic: AAOx3, sensation intact bilaterally, No weakness ( motor strength 5/ 5 bilateral lower extremities) Psychiatric: interacting appropriately, not anxious, not encephalopathic, thought process linear ICD10 Worksheet Patient Problems: Problems Problem Status Onset Fusion of spine of cervical region Acute Fusion of spine of lumbar region Acute
[2017-07-21] MEDS: ACETAMINOPHEN 500 MG TAB PO PRN (16:28)
[2017-07-21] MEDS ORDERED: TACROLIMUS 1 MG CAP PO SCH (18:00)
[2017-07-21] MEDS: ERTAPENEM 1 GM in NS 100 ML IV SCH (18:10)
[2017-07-21 18:28] LABS: INR 1.24 (0.83-1.16); PROTIME(PATIENT) 15.6 SEC (12.0-15.0)
[2017-07-21] MEDS: traMADol 50 MG TAB PO PRN (21:35)
[2017-07-21] MEDS: CETIRIZINE 10 MG TAB PO SCH (21:36)
[2017-07-21] MEDS: MELATONIN 3 MG TAB PO SCH (21:37)
[2017-07-21] MEDS: traZODone 100 MG TAB PO SCH (21:37)
[2017-07-21] MEDS: MYCOPHENOLATE PO SCH (21:38)
[2017-07-21 23:40] LABS: COLOR YELLOW; LEUKOCYTE ESTERASE,URINE NEGATIVE (NEGATIVE); NITRITE,URINE NEGATIVE (NEGATIVE)
[2017-07-21 23:46] LABS: MUCUS TRACE /lpf (NONE-1+)
[2017-07-22] MEDS: TACROLIMUS 1 MG CAP PO SCH ×2 (05:12→17:28)
[2017-07-22 07:08] LABS: % IMMATURE GRANULYOCYTES 1.7 % (0.0-1.1); ABSOLUTE IMMATURE GRANULOCYTES 0.19 10^3/uL (0.00-0.10); ADD DIFF? NO; ADD MORPH? NO; ADD SCAN? NO; ATYPICAL LYMPHOCYTE FLAG 0 (0-99); FRAGMENT RBC FLAG 20 (0-99); HEMATOCRIT 27.3 % (38.0-47.0); HEMOGLOBIN 9.2 g/dL (12.6-16.3); LEFT SHIFT FLG 10 (0-99); LIPEMIA HEMOLYSIS FLAG 80 (0-99); MEAN CELL HEMOGLOBIN 30.4 pg (27.9-34.1); MEAN CELL HEMOGLOBIN CONCENTR. 33.7 g/dL (32.4-36.7); MEAN CELL VOLUME 90.1 fL (81.5-99.8); MEAN PLATELET VOLUME 13.3 fL (8.7-11.7); PLATELET CLUMPS FLAG 0 (0-99); PLATELET COUNT 100 10^3/uL (150-400); RED BLOOD CELL COUNT 3.03 10^6/uL (4.18-5.33); RED CELL DISTRIBUTION WIDTH 15.8 % (11.5-15.2)
[2017-07-22 07:15] LABS: ANION GAP 8 mEq/L (8-16); CARBON DIOXIDE 24 mEq/l (22-31); CHLORIDE 105 mEq/L (97-110); CREATININE 0.7 mg/dL (0.6-1.0); GLOMERULAR FILTRATION RATE > 60; GLUCOSE 125 mg/dL (70-100); POTASSIUM 3.7 mEq/L (3.5-5.2); SODIUM 137 mEq/L (134-144)
[2017-07-22 07:16] LABS: CALCIUM 8.9 mg/dL (8.5-10.4)
[2017-07-22 07:17] LABS: INR 1.23 (0.83-1.16); PROTIME(PATIENT) 15.5 SEC (12.0-15.0)
[2017-07-22] MEDS: MYCOPHENOLATE PO SCH ×2 (08:46→22:28)
[2017-07-22] MEDS: PREGABALIN 50 MG CAP PO SCH ×2 (08:51→20:17)
[2017-07-22] MEDS: PANTOPRAZOLE SODIUM 40 MG TAB PO SCH (08:51)
[2017-07-22] MEDS: morphINE SR 15 MG TAB PO SCH ×2 (08:52→20:17)
[2017-07-22] MEDS: POLYETHYLENE GLYCOL 3350 17 GM PKT PO SCH ×3 (08:52→22:29)
[2017-07-22] MEDS: CALCIUM CARBONATE 500 MG TAB PO SCH ×2 (08:52→20:18)
[2017-07-22] MEDS: SENNOSIDES/DOCUSATE SODIUM TAB PO SCH ×2 (08:52→20:18)
[2017-07-22] MEDS: ENOXAPARIN 40 MG/0.4 ML SYR SC SCH (08:53)
[2017-07-22] MEDS: PRASTERONE 25 MG PO SCH (09:04)
[2017-07-22] MEDS: traMADol 50 MG TAB PO PRN ×3 (09:08→18:38)
[2017-07-22] MEDS: SODIUM BICARBONATE 650 MG TAB PO SCH (09:54)
[2017-07-22] MEDS: predniSONE 5 MG TAB PO SCH (12:02)
--- NOTE | 2017-07-22 12:58 | SOAPPROG ---
SOAP Progress Note Assessment/Plan: Assessment: doing well. needs more time to recover from the surgery and keep working with therapies. Plan: 07/22/17 12:57 Subjective: She is frail today and hurting but generally doing ok Objective: Vital Signs Temp Pulse Resp BP Pulse Ox 36.9 C 87 18 141/58 H 98 07/22/17 11:50 07/22/17 11:50 07/22/17 11:50 07/22/17 11:50 07/22/17 11:50 Microbiology 07/21/17 18:30 - Final Sputum, Expectorated Laboratory Results 07/22/17 06:31 07/22/17 06:31 07/21/17 07/22/17 07/23/17 05:59 05:59 05:59 Intake Total 7044 1300 350 Output Total 5255 1330 1000 Balance 1789 -30 -650 PT 15.5 SEC (12.0-15.0) H 07/22/17 06:31 INR 1.23 (0.83-1.16) H 07/22/17 06:31 moving her legs fine without pain dressing is dry at this point but had to be reinforced. ICD10 Worksheet Patient Problems: Problems Problem Status Onset Fusion of spine of lumbar region Acute Fusion of spine of cervical region Acute
--- NOTE | 2017-07-22 16:19 | HOSPPROG ---
Hospitalist Progress Note Assessment/Plan: Assessment: 71-year-old female with lumbar spine fusion complicated by possible pneumonia, [id number], and hypotension Plan: 1. Hypotension. 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 Acute blood loss anemia. Evidenced by hemoglobin 9.5, with an initial hemoglobin of 11.9, status post surgery, no evidence of ongoing blood loss -today 9.2, continue monitor hemoglobin level daily -does not require blood transfusion at this time 3. Lumbar fusion. Postop day 2, pain control under the primary service neurosurgical service, has ongoing morphine [employer] and PO Rx - bowel regimen ordered 4. Renal transplant. On chronic immunosuppression, continue home medications, have been appropriately reconciled 5. Thrombocytopenia. Platelet level from 160,000 to 100,000, continue to monitor daily. 6. Possible Pneumonia. Evidenced by fever + CXR w/ possible interstitial infiltrates (personally interpreted), and it seems more likely that she has infxn than CHF - leukocytosis difficult to interpret s/p surgery, cont to monitor - BCx and Sputum Cx sent - D#2 invanz, cont for 3-5 days, depending on clinical course - monitor for recurrent fever - give IS to prevent atelectasis Hospital Medicine will continue to consult in this patient's daily care, please contact us for any acute medical issues. Subjective: patient reports she feels warm, temp is 98.1, no BM Objective: Vital Signs Temp Pulse Resp BP Pulse Ox 36.9 C 98 18 124/54 H 99 07/22/17 15:23 07/22/17 15:23 07/22/17 15:23 07/22/17 15:23 07/22/17 15:23 Microbiology 07/21/17 18:30 - Final Sputum, Expectorated Laboratory Results 07/22/17 06:31 07/22/17 06:31 07/21/17 07/22/17 07/23/17 05:59 05:59 05:59 Intake Total 7044 1300 350 Output Total 5255 1330 1070 Balance 1789 -30 -720 PT 15.5 SEC (12.0-15.0) H 07/22/17 06:31 INR 1.23 (0.83-1.16) H 07/22/17 06:31 - Physical Exam Constitutional: no apparent distress, appears nourished, uncomfortable, No chronically ill appearing Cardiovascular: systolic murmur (I/ at sternum), No irregularly irregular, No tachycardia, No edema Respiratory: inspiratory crackles (mid post seg), No reduced air movement, No expiratory wheeze, No bronchial breath sounds, No respiratory distress Gastrointestinal: normoactive bowel sounds, soft, non-tender abdomen, no palpable masses Musculoskeletal: other (wearing TLSO brace) Neurologic: AAOx3, sensation intact bilaterally, other (pain w/ flexion of legs) , No weakness Psychiatric: interacting appropriately, not anxious, not encephalopathic, thought process linear ICD10 Worksheet Patient Problems: Problems Problem Status Onset Fusion of spine of lumbar region Acute Fusion of spine of cervical region Acute
--- NOTE | 2017-07-22 16:58 | ASMTCMCOM ---
CM Note CM Note Notes: Pt. is a 71-year-old woman admitted for a lumbar fusion surgery. Pt. w/ hx. of a renal transplant in 07/2016 - on immunosuppresants, had neck surgery 3.5 months ago. Hx. PNA, Type 2 diabetes, and uses a cane. PT recommending SNF, OT recommending SNF v HC v H. CM to follow for d/c POC. Date Signed: 07/22/2017 04:57 PM Electronically Signed By:Cydney Skelton
[2017-07-22] MEDS: ERTAPENEM 1 GM in NS 100 ML IV SCH (17:21)
[2017-07-22] MEDS: CETIRIZINE 10 MG TAB PO SCH (20:18)
[2017-07-22] MEDS: traZODone 100 MG TAB PO SCH (22:25)
[2017-07-22] MEDS: MELATONIN 3 MG TAB PO SCH (22:26)
[2017-07-23] MEDS: traMADol 50 MG TAB PO PRN ×4 (04:36→20:25)
[2017-07-23] MEDS: ACETAMINOPHEN 500 MG TAB PO PRN ×2 (04:40→15:31)
[2017-07-23] MEDS: TACROLIMUS 1 MG CAP PO SCH ×2 (06:16→17:21)
[2017-07-23] MEDS: morphINE SR 15 MG TAB PO SCH ×2 (09:24→21:47)
[2017-07-23] MEDS: CALCIUM CARBONATE 500 MG TAB PO SCH ×2 (09:25→20:27)
[2017-07-23] MEDS: PANTOPRAZOLE SODIUM 40 MG TAB PO SCH (09:25)
[2017-07-23] MEDS: PREGABALIN 50 MG CAP PO SCH ×2 (09:25→20:28)
[2017-07-23] MEDS: POLYETHYLENE GLYCOL 3350 17 GM PKT PO SCH ×3 (09:25→21:53)
[2017-07-23] MEDS: SENNOSIDES/DOCUSATE SODIUM TAB PO SCH ×2 (09:25→20:27)
[2017-07-23] MEDS: SODIUM BICARBONATE 650 MG TAB PO SCH (09:26)
[2017-07-23] MEDS: MYCOPHENOLATE PO SCH ×2 (09:35→20:30)
[2017-07-23] MEDS: ENOXAPARIN 40 MG/0.4 ML SYR SC SCH (09:37)
[2017-07-23] MEDS: PRASTERONE 25 MG PO SCH (09:37)
--- NOTE | 2017-07-23 12:06 | SOAPPROG ---
SOAP Progress Note Assessment/Plan: Assessment: doing well. needs more time to recover from the surgery and keep working with therapies. continue the drains for now. Plan: 07/22/17 12:57 07/23/17 12:05 Subjective: Doing relatively well sitting up in a chair when approached. Some right leg pain but she is doing better today than yesterday Objective: Vital Signs Temp Pulse Resp BP Pulse Ox 37.1 C 85 17 111/57 L 93 07/23/17 07:39 07/23/17 12:00 07/23/17 12:00 07/23/17 12:00 07/23/17 12:00 Microbiology 07/21/17 18:30 - Final Sputum, Expectorated Sputum Culture - Final Laboratory Results 07/22/17 06:31 07/22/17 06:31 07/22/17 07/23/17 07/24/17 05:59 05:59 05:59 Intake Total 1300 940 Output Total 1330 2810 Balance -30 -1870 PT 15.5 SEC (12.0-15.0) H 07/22/17 06:31 INR 1.23 (0.83-1.16) H 07/22/17 06:31 maew ashley 110cc ICD10 Worksheet Patient Problems: Problems Problem Status Onset Fusion of spine of lumbar region Acute Fusion of spine of cervical region Acute
[2017-07-23] MEDS: predniSONE 5 MG TAB PO SCH (12:36)
[2017-07-23] MEDS: ERTAPENEM 1 GM in NS 100 ML IV SCH (17:21)
--- NOTE | 2017-07-23 17:48 | HOSPPROG ---
Hospitalist Progress Note Assessment/Plan: * Hypotension - resolved with stress dose steroid post-op * Lumbar fusion revision * Renal transplant -continue chronic immunosuppression * Possible PNA -IV Invanz Subjective: No complaints. Objective: Vital Signs Temp Pulse Resp BP Pulse Ox 37.1 C 96 16 113/64 98 07/23/17 16:00 07/23/17 16:00 07/23/17 16:00 07/23/17 16:00 07/23/17 16:00 Microbiology 07/21/17 18:30 - Final Sputum, Expectorated Sputum Culture - Final Laboratory Results 07/22/17 06:31 07/22/17 06:31 07/22/17 07/23/17 07/24/17 05:59 05:59 05:59 Intake Total 1300 940 Output Total 1330 2810 400 Balance -30 -1870 -400 PT 15.5 SEC (12.0-15.0) H 07/22/17 06:31 INR 1.23 (0.83-1.16) H 07/22/17 06:31 - Physical Exam Constitutional: no apparent distress, appears nourished, not in pain Cardiovascular: regular rate and rhythym, no murmur, rub, or gallop Respiratory: no respiratory distress, no rales or rhonchi, clear to auscultation Gastrointestinal: normoactive bowel sounds, soft, non-tender abdomen, no palpable masses Skin: no rashes or abrasions, no fluctuance, no induration Neurologic: AAOx3, sensation intact bilaterally Psychiatric: interacting appropriately, not anxious, not encephalopathic, thought process linear ICD10 Worksheet Patient Problems: Problems Problem Status Onset Fusion of spine of lumbar region Acute Fusion of spine of cervical region Acute
[2017-07-23] MEDS: CETIRIZINE 10 MG TAB PO SCH (20:26)
[2017-07-23] MEDS: traZODone 100 MG TAB PO SCH (21:47)
[2017-07-23] MEDS: MELATONIN 3 MG TAB PO SCH (21:47)
[2017-07-24] MEDS: METHOCARBAMOL 750 MG TAB PO PRN ×2 (03:39→13:54)
[2017-07-24] MEDS: traMADol 50 MG TAB PO PRN ×2 (03:39→15:36)
[2017-07-24] MEDS: TACROLIMUS 1 MG CAP PO SCH ×2 (06:00→17:19)
[2017-07-24] MEDS: oxyCODONE IR 5 MG TAB PO PRN ×3 (06:01→18:18)
[2017-07-24] MEDS: DIAZEPAM 5 MG TAB PO PRN (06:01)
[2017-07-24] MEDS: ACETAMINOPHEN 500 MG TAB PO PRN ×3 (06:01→21:31)
[2017-07-24] MEDS: CALCIUM CARBONATE 500 MG TAB PO SCH ×2 (09:12→21:30)
[2017-07-24] MEDS: PREGABALIN 50 MG CAP PO SCH ×2 (09:12→21:29)
[2017-07-24] MEDS: SENNOSIDES/DOCUSATE SODIUM TAB PO SCH ×2 (09:12→21:41)
[2017-07-24] MEDS: PANTOPRAZOLE SODIUM 40 MG TAB PO SCH (09:12)
[2017-07-24] MEDS: ENOXAPARIN 40 MG/0.4 ML SYR SC SCH (09:12)
[2017-07-24] MEDS: morphINE SR 15 MG TAB PO SCH ×2 (09:12→21:32)
[2017-07-24] MEDS: POLYETHYLENE GLYCOL 3350 17 GM PKT PO SCH ×3 (09:12→21:41)
[2017-07-24] MEDS: SODIUM BICARBONATE 650 MG TAB PO SCH (09:13)
[2017-07-24] MEDS: MYCOPHENOLATE PO SCH ×2 (09:14→21:39)
[2017-07-24] MEDS: PRASTERONE 25 MG PO SCH (09:16)
--- NOTE | 2017-07-24 10:29 | SOAPPROG ---
SOAP Progress Note Assessment/Plan: Assessment: doing well. needs more time to recover from the surgery and keep working with therapies. continue the drains for now but the drain only put out 10cc overnight. Anticipate dc drain tmrw. xryas look great. Plan: 07/22/17 12:57 07/23/17 12:05 07/24/17 10:28 Subjective: She was standing up in the bathroom with PT when approached. walking with the help of a walker. Some bilateral leg pain but right is worse than left. She is ambulating relatively well. Objective: Vital Signs Temp Pulse Resp BP Pulse Ox 36.9 C 87 16 107/52 L 90 L 07/24/17 08:00 07/24/17 08:00 07/24/17 08:00 07/24/17 08:00 07/24/17 08:00 Microbiology 07/21/17 18:30 - Final Sputum, Expectorated Sputum Culture - Final Laboratory Results 07/22/17 06:31 07/22/17 06:31 07/23/17 07/24/17 07/25/17 05:59 05:59 05:59 Intake Total 940 550 Output Total 2810 1155 Balance -1870 -605 PT 15.5 SEC (12.0-15.0) H 07/22/17 06:31 INR 1.23 (0.83-1.16) H 07/22/17 06:31 MAEW Drain decreased to 10cc today. ICD10 Worksheet Patient Problems: Problems Problem Status Onset Fusion of spine of lumbar region Acute Fusion of spine of cervical region Acute
[2017-07-24] MEDS: predniSONE 5 MG TAB PO SCH (13:54)
--- NOTE | 2017-07-24 15:38 | HOSPPROG ---
Hospitalist Progress Note Assessment/Plan: * Hypotension - resolved with stress dose steroid post-op * Lumbar fusion revision -doing well - likely needs rehab * Renal transplant -continue chronic immunosuppression * Possible PNA -IV Invanz - DC soon Subjective: No new complaints Objective: Vital Signs Temp Pulse Resp BP Pulse Ox 36.9 C 87 16 107/52 L 90 L 07/24/17 08:00 07/24/17 08:00 07/24/17 08:00 07/24/17 08:00 07/24/17 08:00 Microbiology 07/21/17 18:30 - Final Sputum, Expectorated Sputum Culture - Final Laboratory Results 07/22/17 06:31 07/22/17 06:31 07/23/17 07/24/17 07/25/17 05:59 05:59 05:59 Intake Total 940 550 Output Total 2810 1155 Balance -1870 -605 PT 15.5 SEC (12.0-15.0) H 07/22/17 06:31 INR 1.23 (0.83-1.16) H 07/22/17 06:31 - Physical Exam Constitutional: no apparent distress, appears nourished, not in pain Cardiovascular: regular rate and rhythym, no murmur, rub, or gallop Respiratory: no respiratory distress, no rales or rhonchi, clear to auscultation Gastrointestinal: normoactive bowel sounds, soft, non-tender abdomen, no palpable masses Skin: no rashes or abrasions, no fluctuance, no induration Neurologic: AAOx3, sensation intact bilaterally Psychiatric: interacting appropriately, not anxious, not encephalopathic, thought process linear ICD10 Worksheet Patient Problems: Problems Problem Status Onset Fusion of spine of lumbar region Acute Fusion of spine of cervical region Acute
[2017-07-24] MEDS: ERTAPENEM 1 GM in NS 100 ML IV SCH (17:19)
--- NOTE | 2017-07-24 17:25 | ASMTCMCOM ---
CM Note CM Note Notes: PT and OT recommending snf Rehab. Spoke to patient who lives with her in [place]. She would like a SNF facility in [place]. We talked about the [facility] [place] and [facility]-both have private rooms. Contacted , Curtis and gave him the addresses for both so he could go, look, and report back to . Date Signed: 07/24/2017 05:24 PM Electronically Signed By:Desiree Alvarez
[2017-07-24] MEDS: MELATONIN 3 MG TAB PO SCH (21:30)
[2017-07-24] MEDS: CETIRIZINE 10 MG TAB PO SCH (21:30)
[2017-07-24] MEDS: traZODone 100 MG TAB PO SCH (21:32)
[2017-07-25] MEDS: oxyCODONE IR 5 MG TAB PO PRN ×3 (03:55→17:03)
[2017-07-25] MEDS: METHOCARBAMOL 750 MG TAB PO PRN ×3 (03:56→17:04)
[2017-07-25 07:45] VITALS: RESP 14
[2017-07-25] MEDS: MYCOPHENOLATE PO SCH (08:23)
[2017-07-25] MEDS: SODIUM BICARBONATE 650 MG TAB PO SCH (08:23)
[2017-07-25] MEDS: TACROLIMUS 1 MG CAP PO SCH (08:23)
[2017-07-25] MEDS: POLYETHYLENE GLYCOL 3350 17 GM PKT PO SCH ×2 (08:24→15:56)
[2017-07-25] MEDS: ENOXAPARIN 40 MG/0.4 ML SYR SC SCH (08:24)
[2017-07-25] MEDS: PANTOPRAZOLE SODIUM 40 MG TAB PO SCH (08:25)
[2017-07-25] MEDS: SENNOSIDES/DOCUSATE SODIUM TAB PO SCH (08:25)
[2017-07-25] MEDS: morphINE SR 15 MG TAB PO SCH (08:26)
[2017-07-25] MEDS: CALCIUM CARBONATE 500 MG TAB PO SCH (08:26)
[2017-07-25] MEDS: PREGABALIN 50 MG CAP PO SCH (08:31)
[2017-07-25] MEDS: PRASTERONE 25 MG PO SCH (08:36)
--- NOTE | 2017-07-25 10:11 | NEUSURGPN ---
Assessment/Plan: A: 71 yo female POD #5 s/p L1-5 fusion with L3/4 TLIF and L4 wedge osteotomy P: -Overall doing well, still has right leg pain > left but getting better -optimize pain management- Recommend staying on top of muscle relaxant-robaxin for spasms -Continue PT/OT -postop xrays look great -On invanz for possibly PNA- per medicine -Dispo- Looking at SNF options in [place]- can go once cleared by medicine/ therapies -Remove PRINCESS today -Discussed with S: Patient states he right leg still has shooting pain similar to prior to surgery but getting better. Able to ambulate with walker. Has incisional pain still and spasms mostly. O: NAD, VSS CN II-XII grossly intact Speech fluent BLE 5/5= Sensation intact to lt touch Incision- dressing c/d/i PRINCESS empty minimal drainage- to be removed today Catheter Insertion Date: 07/20/17 - Physician Discussed Patient with : Ruth Neurosurgery Physical Exam - Vitals, I&O, Labs I and O 07/24/17 07/25/17 07/26/17 05:59 05:59 05:59 Intake Total 550 320 Output Total 1155 602 Balance -605 -282 Intake: Oral (ml) 550 200 IV Intake (ml) 120 Output: Urine (ml) 1150 600 Bedside Commode 750 Toilet 400 600 PRINCESS Drain Output (ml) 5 2 Back 5 2 Other: Intake Quantity Yes Sufficient Number of Voids Bedside Commode 2 Toilet 1 1 Bladder Scan Volume (ml) Bedside Commode 474 Vital Signs Temp Pulse Resp BP Pulse Ox 37.0 C 79 14 125/58 H 94 07/25/17 07:44 07/25/17 07:44 07/25/17 07:44 07/25/17 07:44 07/25/17 08:22 Laboratory Results 07/22/17 06:31 07/22/17 06:31 ICD10 Worksheet Patient Problems: Problems Problem Status Onset Fusion of spine of lumbar region Acute Fusion of spine of cervical region Acute
[2017-07-25] MEDS: predniSONE 5 MG TAB PO SCH (12:37)
[2017-07-25] MEDS: traMADol 50 MG TAB PO PRN (12:38)
[2017-07-25] MEDS: ACETAMINOPHEN 500 MG TAB PO PRN (13:06)
[2017-07-25] MEDS: DIAZEPAM 5 MG TAB PO PRN (13:07)
--- NOTE | 2017-07-25 14:46 | PDIAF ---
- Diagnosis Diagnosis: Lumbar stenosis Code Status: Full Code - Medication Management Discharge Medications: Medications to Continue on Transfer Cetirizine [ZyrTEC 10 mg (*)] 10 mg PO DAILY 08/18/15 [Last Taken 07/19/17 12:00 ] traMADol [Ultram 50 mg (*)] 100 mg PO TID 08/18/15 [Last Taken 07/19/17 22:00] traZODone [traZODONE 100MG (*)] 50 - 100 mg PO HS 08/18/15 [Last Taken 07/19/17 23:30] Mycophenolate Sodium [Myfortic] 360 mg PO BID@01/24/17 [Last Taken 00:00] Pantoprazole Sodium [Protonix 40mg (*)] 40 mg PO DAILY 01/24/17 [Last Taken 12:00] predniSONE 5 mg PO DAILY@01/24/17 [Last Taken 07/19/17 12:00] Cholecalciferol Vit D3 [Vitamin D3 (*)] 5,000 units PO DAILY 06/16/17 [Last Taken 07/17/17] Sarita-3 Fatty Acids [Fish Oil 1000 mg (*)] 1,000 mg PO HS 06/16/17 [Last Taken 07/16/17] Vitamin B Complex [B Complex] 1 tab PO DAILY 06/16/17 [Last Taken 07/19/17 09:00 ] Calcium Citrate 250 mg PO TIDMEAL 07/20/17 [Last Taken 07/19/17] Melatonin [Melatonin 5 mg] 10 mg PO HS 07/20/17 [Last Taken 07/19/17 23:55] Prasterone (Dhea) [Dhea 25] 25 mg PO DAILY 07/20/17 [Last Taken 07/19/17 12:00] Pregabalin [LYRICA] 200 mg PO BID 07/20/17 [Last Taken 07/19/17 23:55] Sodium Bicarbonate [Na Bicarb] 650 mg PO DAILY 07/20/17 [Last Taken Unknown] Tacrolimus [Prograf] 2 mg PO DAILY@07/20/17 [Last Taken 07/19/17 23:55] Tacrolimus [Prograf] 3 mg PO DAILY@07/20/17 [Last Taken 07/19/17 22:00] Acetaminophen [Tylenol ES 500 mg (*)] 1,000 mg PO Q8HRS PRN #0 tab 07/25/17 [ Last Taken Unknown] Diazepam [Valium 5 MG (*)] 5 mg PO Q6HRS PRN #0 tab 07/25/17 [Last Taken Unknown ] Methocarbamol [Robaxin 750 mg (*)] 750 mg PO QID PRN #0 tab 07/25/17 [Last Taken Unknown] Ondansetron Odt [Zofran Odt 4 mg (*)] 4 - 8 mg PO Q6HRS PRN #0 tab 07/25/17 [ Last Taken Unknown] Polyethylene Glycol 3350 [Miralax 17 gm (*)] 17 gm PO TID #0 pkt 07/25/17 [Last Taken Unknown] Sennosides/Docusate Sodium [Senokot-S] 1 - 2 tab PO BID #0 tab 07/25/17 [Last Taken Unknown] morphINE SR [Ms Contin/Oramorph 15 mg (*)] 15 mg PO BID #0 tab 07/25/17 [Last Taken Unknown] oxyCODONE IR [Oxycodone Ir (*)] 5 - 10 mg PO Q4HRS PRN #0 tab 07/25/17 [Last Taken Unknown] [employer]st Antibiotics: none- last dose of Invanz given today Discharge Medications: Refer to the Discharge Home Medication list for PRN reason. - Orders Services needed: Registered Nurse, Physical Therapy, Occupational Therapy Diet Recommendation: no restrictions on diet Diet Texture: Regular Texture Diet Duong: Not applicable Julius Stockings Discontinue Date: When walking at least 3 times per day for 200 yards Wound Care Instructions: No NSAID's for 6 months. Wear your brace when you are up and out of bed. No bending at the waist, lifting, or twisting more than 5- 10 pounds. Follow up with Dr. Palacio in 2 weeks. Call [phone] to make this appointment. Call with any new or worsening symptoms. May shower, no scrubbing incision, pat dry with towel, dressing only if needed for comfort but must change daily if has dressing/keep dry Activity/Weight Bearing Restrictions: No NSAID's for 6 months. Wear your brace when you are up and out of bed. No bending at the waist, lifting, or twisting more than 5-10 pounds. Follow up with Dr. Palacio in 2 weeks. Call [phone] to make this appointment. Call with any new or worsening symptoms. May shower, no scrubbing incision, pat dry with towel, dressing only if needed for comfort but must change daily if has dressing/keep dry - Follow Up Care Current Providers and Referrals: ZEYAD MONSIVAIS [Primary Care Provider] - Yuri Miranda MD [Medical Doctor] - follow up in 2 weeks
[2017-07-25] MEDS ORDERED: PRASTERONE 25 MG PO SCH (15:00)
[2017-07-25 15:42] VITALS: BP 114/59; PULSE 70; TEMP 98.7; O2SAT 98
[2017-07-25] MEDS: ERTAPENEM 1 GM in NS 100 ML IV SCH (15:52)
--- NOTE | 2017-07-25 18:06 | HOSPPROG ---
Hospitalist Progress Note Assessment/Plan: * Hypotension - resolved with stress dose steroid post-op * Lumbar fusion revision -doing well - needs rehab * Renal transplant -continue chronic immunosuppression * Possible PNA -IV Invanz - day # 5 - antibiotics complete d/w neurosurgery - ok per IM for discharge to SNF today Subjective: No new complaints. Objective: Vital Signs Temp Pulse Resp BP Pulse Ox 37.1 C 70 14 114/59 L 98 07/25/17 15:41 07/25/17 15:41 07/25/17 15:41 07/25/17 15:41 07/25/17 15:41 Laboratory Results 07/22/17 06:31 07/22/17 06:31 07/24/17 07/25/17 07/26/17 05:59 05:59 05:59 Intake Total 550 320 Output Total 1155 602 10 Balance -605 -282 -10 PT 15.5 SEC (12.0-15.0) H 07/22/17 06:31 INR 1.23 (0.83-1.16) H 07/22/17 06:31 - Physical Exam Constitutional: no apparent distress, appears nourished, not in pain Cardiovascular: regular rate and rhythym, no murmur, rub, or gallop Respiratory: no respiratory distress, no rales or rhonchi, clear to auscultation Gastrointestinal: normoactive bowel sounds, soft, non-tender abdomen, no palpable masses Skin: no rashes or abrasions, no fluctuance, no induration Neurologic: AAOx3, sensation intact bilaterally Psychiatric: interacting appropriately, not anxious, not encephalopathic, thought process linear ICD10 Worksheet Patient Problems: Problems Problem Status Onset Fusion of spine of cervical region Acute Fusion of spine of lumbar region Acute
[2017-07-25] MEDS ORDERED: MYCOPHENOLATE PO SCH (21:00)
--- NOTE | 2017-07-26 09:22 | ASDISCHSUM ---
Discharge Information Plan Status:SNF Medically Cleared to Leave: Discharge Date: D/C Disposition:Custodial Facility [facility] D/C Disposition: Projected Discharge Date:07/27/2017 11:00 AM Transportation at D/C:Wheelchair Van Discharge Delay Reason: Follow-Up Date:07/27/2017 11:00 AM Discharge Slot: Final Diagnosis:Lumbar fusion, hypotension, renal transplant, PNA Placement Information Referral Type:*[facility]/SNF Referral ID:[id number] Provider Name:[facility] Address 1:[address] [place] [address] Address 2: City:[place] Selection Factors: State:[place] Patient Contact Information Contact Name:JOSELUIS Relationship: Address:[address] Work Phone: City:[place] Alternate Phone: State/Zip Code:[place] [address] Email: Financial Information Financial Class: Primary Plan Desc:MEDICARE INPATIENT Primary Plan Number:[id number] Secondary Plan Desc:[employer] PPO AND EPO Secondary Plan Number:[id number] Assessment Information [facility] CM Progress Note CM Note CM Note Notes: Pt. is a 71-year-old woman admitted for a lumbar fusion surgery. Pt. w/ hx. of a renal transplant in 07/2016 - on immunosuppresants, had neck surgery 3.5 months ago. Hx. PNA, Type 2 diabetes, and uses a cane. PT recommending SNF, OT recommending SNF v HC v H. CM to follow for d/c POC. Date Signed: 07/22/2017 04:57 PM Electronically Signed By:Cydney Skelton [facility] CM Progress Note CM Note CM Note Notes: PT and OT recommending snf Rehab. Spoke to patient who lives with her in [place]. She would like a SNF facility in [place]. We talked about the [facility] [place] [facility]both [facility] private rooms. Contacted , Curtis and gave him the addresses for both so he could go, look, and report back to . Date Signed: 07/24/2017 05:24 PM Electronically Signed By:Desiree Alvarez Intervention Information Intervention Type:*IM-Signed Date of Service:07/25/2017 04:41 PM Patient Type:Inpatient Staff Member:Selina Wyman Hours: Discipline: Severity: Comment:
--- NOTE | 2017-07-26 09:23 | ASMTCMCOM ---
CM Note CM Note Notes: Pt medically stable for d/c to [facility]. Date Signed: 07/26/2017 09:22 AM Electronically Signed By:Suellen Escobar
== END 2017-07-25 17:05 | DRG 456 ==
LOC: F3N 06:17 → F2N 15:49 → F3N 07-21 14:37
PROVIDERS: ADMIT Neurological Surgery; ATTEND Neurological Surgery
PROC: 0QP004Z Removal of Internal Fixation Device from Lumbar Vertebra, Open Approach (ICD-10-PCS; principal; 2017-07-20 09:45)
PROC: 0SB20ZZ Excision of Lumbar Vertebral Disc, Open Approach (ICD-10-PCS; principal; 2017-07-20 09:45)
PROC: 01NB0ZZ Release Lumbar Nerve, Open Approach (ICD-10-PCS; principal; 2017-07-20 09:45)
PROC: 0Q800ZZ Division of Lumbar Vertebra, Open Approach (ICD-10-PCS; principal; 2017-07-20 09:45)
PROC: 30243N1 Transfusion of Nonautologous Red Blood Cells into Central Vein, Percutaneous Approach (ICD-10-PCS; principal; 2017-07-20 09:45)
PROC: 3E0U0GB Introduction of Recombinant Bone Morphogenetic Protein into Joints, Open Approach (ICD-10-PCS; principal; 2017-07-20 09:45)
PROC: 0SG10AJ Fusion of 2 or more Lumbar Vertebral Joints with Interbody Fusion Device, Posterior Approach, Anterior Column, Open Approach (ICD-10-PCS; principal; 2017-07-20 09:45)
DX: M40.36 Flatback syndrome, lumbar region (principal); M51.37 Other intervertebral disc degeneration, lumbosacral region; J18.9 Pneumonia, unspecified organism; D62 Acute posthemorrhagic anemia; D69.6 Thrombocytopenia, unspecified; E11.40 Type 2 diabetes mellitus with diabetic neuropathy, unspecified; I95.9 Hypotension, unspecified; Z94.0 Kidney transplant status; Z98.1 Arthrodesis status; Z79.52 Long term (current) use of systemic steroids; I25.2 Old myocardial infarction; Z87.01 Personal history of pneumonia (recurrent); Z87.440 Personal history of urinary (tract) infections; Z98.84 Bariatric surgery status
CPT/HCPCS: 82947-QW; 97116-GP; 97161-GP; 97166-GO; 97530-GP; 97535-GO; C1713; G8978-GP-CK; G8979-GP-CI; G8987-GO-CL; G8988-GO-CI; J0171; J0690; J1170; J1335; J1650; J2270; J2274; J2704; J3010; J7060; J7507; P9016; P9041

== ENCOUNTER 2017-08-03 08:29 | Day surgery (SDC) | payer OTHER ==
[2017-08-03] MEDS ORDERED: ceFAZolin 2 GM/DEXTROSE 100 ML IV ONE (11:00)
[2017-08-03] MEDS ORDERED: fentaNYL 100 MCG/2 ML INJ ONE (11:06)
[2017-08-03] MEDS ORDERED: MIDAZOLAM 2 MG/2 ML VIAL ONE (11:06)
[2017-08-03] MEDS ORDERED: IOPAMIDOL (ISOVUE-300) 100 ML BTL ONE ×2 (11:37→15:12)
[2017-08-03] MEDS ORDERED: oxyCODONE IR 5 MG TAB PO PRN (12:34)
[2017-08-03] MEDS ORDERED: ONDANSETRON 4 MG/2 ML VIAL IVP PRN (12:35)
[2017-08-03 12:51] VITALS: BP 139/77; RESP 18; O2SAT 100
== END 2017-08-03 13:25 | disposition home or self-care (01) ==
LOC: FIMAGING 08:29
PROVIDERS: ATTEND Physician Assistant Surgical
PROC: 0J973ZX Drainage of Back Subcutaneous Tissue and Fascia, Percutaneous Approach, Diagnostic (ICD-10-PCS; principal; 2017-08-03 12:07)
DX: M96.843 Postprocedural seroma of a musculoskeletal structure following other procedure (principal); Z98.1 Arthrodesis status
CPT/HCPCS: 10030; 75989; 99152; C1729; C1769; J0690; J2250; J3010; Q9967

== ENCOUNTER 2017-08-30 16:56 | Inpatient (IN) | payer OTHER ==
--- NOTE | 2017-08-30 17:09 | EDPHY ---
H & P Time Seen by Provider: 08/30/17 17:07 HPI/ROS: Chief complaint. Fever HPI. 71-year-old immunosuppressed female had spinal surgery in June which was a lumbar spine hardware revision. It was then debrided again in July. She has apparently had intermittent fevers since late July. She had positive blood culture on August 23 growing granulicatella adiacens and then Enterococcus from her wound. Patient has no complaints of upper respiratory infection cough, chest discomfort, shortness of breath, abdominal pain. She does have chronic urinary incontinence but has no increased urinary symptoms. She was sent here by ambulance for evaluation and admission. Patient had a kidney transplant and is on Prograf. She has also been on intravenous ampicillin. ROS Constitutional. Fever Eyes. no problems with vision ENT. no sore throat, no nasal drainage Cardiovascular. no chest pain Respiratory. no shortness of breath, no cough Abdominal. no abdominal pain, no nausea/vomiting, no diarrhea . Urinary incontinence MS. no calf pain/swelling, no neck/back pain, no joint pain Skin. no rash Lymph. no swollen glands Neuro. no headache, no dizziness, no difficulty walking or with speech Past Medical/Surgical History: Spine surgery and kidney transplant on Prograf Social History: , nonsmoker, no alcohol Smoking Status: Former smoker Physical Exam: General Appearance: Alert well-developed female mild distress vital signs are stable. Currently afebrile Eyes: Pupils equal and round no pallor or injection. ENT, Mouth: Mucous membranes are moist. Respiratory: There are no retractions, lungs are clear to auscultation. Cardiovascular: Regular rate and rhythm. Gastrointestinal: Abdomen is soft and nontender, no masses, bowel sounds normal. Neurological: Awake and alert, sensory and motor exams grossly normal. Skin: Warm and dry, no rashes. Wound on patient's lumbar spine does not have evidence for cellulitis or infection. There is a Eduard-Monet drain in place with serosanguineous fluid. Musculoskeletal: Neck is supple nontender. Extremities symmetrical, full range of motion. Psychiatric: Patient is oriented X 3, there is no agitation. Constitutional: Initial Vital Signs Temperature (C) 36.6 C 08/30/17 17:25 Heart Rate 79 08/30/17 17:25 Respiratory Rate 16 08/30/17 17:25 Blood Pressure 153/79 H 08/30/17 17:25 O2 Sat (%) 97 08/30/17 17:25 O2 Delivery Mode Room Air Allergies/Adverse Reactions: No Known Allergies Allergy (Verified 08/30/17 17:23) Home Medications: Medication Instructions Recorded Cetirizine [ZyrTEC 10 mg (*)] 10 mg PO DAILY 08/18/15 traMADol [Ultram 50 mg (*)] 100 mg PO TID 08/18/15 traZODone [traZODONE 100MG (*)] 50 - 100 mg PO HS 08/18/15 Mycophenolate Sodium [Myfortic] 360 mg PO BID@,01/24/17 Pantoprazole Sodium [Protonix 40mg 40 mg PO DAILY 01/24/17 (*)] predniSONE 5 mg PO DAILY@12 01/24/17 Cholecalciferol Vit D3 [Vitamin D3 5,000 units PO DAILY 06/16/17 (*)] Hunter-3 Fatty Acids [Fish Oil 1000 1,000 mg PO HS 06/16/17 mg (*)] Vitamin B Complex [B Complex] 1 tab PO DAILY 06/16/17 Calcium Citrate 250 mg PO TIDMEAL 07/20/17 Melatonin [Melatonin 5 mg] 10 mg PO HS 07/20/17 Prasterone (Dhea) [Dhea 25] 25 mg PO DAILY 07/20/17 Pregabalin [LYRICA] 200 mg PO BID 07/20/17 Tacrolimus [Prograf] 2 mg PO DAILY@07/20/17 Tacrolimus [Prograf] 3 mg PO DAILY@18 07/20/17 Acetaminophen [Tylenol ES 500 mg 1,000 mg PO Q8HRS PRN #0 tab 07/25/17 (*)] Diazepam [Valium 5 MG (*)] 5 mg PO Q6HRS PRN #0 tab 07/25/17 Methocarbamol [Robaxin 750 mg (*)] 750 mg PO QID PRN #0 tab 07/25/17 Ondansetron Odt [Zofran Odt 4 mg 4 - 8 mg PO Q6HRS PRN #0 tab 07/25/17 (*)] Polyethylene Glycol 3350 [Miralax 17 gm PO TID #0 pkt 07/25/17 17 gm (*)] Sennosides/Docusate Sodium 1 - 2 tab PO BID #0 tab 07/25/17 [Senokot-S] morphINE SR [Ms Contin/Oramorph 15 15 mg PO BID #0 tab 07/25/17 mg (*)] oxyCODONE IR [Oxycodone Ir (*)] 5 - 10 mg PO Q4HRS PRN #0 tab 07/25/17 Medical Decision Making - Diagnostics Imaging Results: Imaging Impressions Chest X-Ray 08/30/17 18:00 Impression: 1. Clear lungs. No acute process. 2. Cardiomegaly. No failure. Chest x-ray reviewed by me shows cardiomegaly but no evidence for pneumonia Procedures: IV normal saline. Septic workup. IV Zosyn ED Course/Re-evaluation: I consulted and discussed case with Dr. Justin Paula who recommended Zosyn is antibiotic and septic workup. He will see the patient in consultation On re-evaluation patient is stable. The patient and I discussed laboratory evaluation, treatment plan including recommendation for admission. She expresses understanding and agreement I consulted and discussed case Dr. Valentin, hospitalist, who agrees to the admission Differential Diagnosis: I considered pneumonia, sepsis, urinary tract infection. Presumably the positive blood cultures are coming from the patient's back. She has cultured and given IV antibiotics - Data Points Microbiology Results: MICROBIOLOGY 08/30/17 18:30 Back - Aspirate Gram Stain - Final Medications Given: Discontinued Medications Piperacillin/Tazobactam/Dextrose (Zosyn (Premix)) 100 mls @ 200 mls/hr IV EDNOW ONE PRN Reason: Protocol Stop: 08/30/17 18:28 Last Admin: 08/30/17 19:42 Dose: 100 mls Morphine Sulfate (Morphine) 4 mg IVP EDNOW ONE Stop: 08/30/17 18:41 Last Admin: 08/30/17 18:51 Dose: 4 mg Departure - Departure Disposition: [facility] Acute Clinical Impression: Fever Qualifiers: Fever type: due to other condition Qualified Code(s): R50.81 - Fever presenting with conditions classified elsewhere Condition: Fair
[2017-08-30] MEDS ORDERED: PIPERACILLIN/TAZO 4.5 GM/DEX 100 ML IV ONE (17:59)
[2017-08-30 18:46] LABS: COLOR COLORLESS; LEUKOCYTE ESTERASE,URINE NEGATIVE (NEGATIVE); NITRITE,URINE NEGATIVE (NEGATIVE)
[2017-08-30 19:37] LABS: % IMMATURE GRANULYOCYTES 0.5 % (0.0-1.1); ABSOLUTE IMMATURE GRANULOCYTES 0.04 10^3/uL (0.00-0.10); ADD DIFF? NO; ADD MORPH? NO; ADD SCAN? NO; ATYPICAL LYMPHOCYTE FLAG 0 (0-99); FRAGMENT RBC FLAG 40 (0-99); HEMATOCRIT 30.6 % (38.0-47.0); HEMOGLOBIN 9.6 g/dL (12.6-16.3); LEFT SHIFT FLG 0 (0-99); LIPEMIA HEMOLYSIS FLAG 80 (0-99); MEAN CELL HEMOGLOBIN 26.8 pg (27.9-34.1); MEAN CELL HEMOGLOBIN CONCENTR. 31.4 g/dL (32.4-36.7); MEAN CELL VOLUME 85.5 fL (81.5-99.8); MEAN PLATELET VOLUME 11.3 fL (8.7-11.7); PLATELET CLUMPS FLAG 0 (0-99); PLATELET COUNT 296 10^3/uL (150-400); RED BLOOD CELL COUNT 3.58 10^6/uL (4.18-5.33); RED CELL DISTRIBUTION WIDTH 18.1 % (11.5-15.2)
[2017-08-30 19:44] LABS: ANION GAP 9 mEq/L (8-16); BILIRUBIN,TOTAL 0.4 mg/dL (0.1-1.4); CALCIUM 9.6 mg/dL (8.5-10.4); CARBON DIOXIDE 25 mEq/l (22-31); CHLORIDE 101 mEq/L (97-110); CREATININE 0.8 mg/dL (0.6-1.0); GLOMERULAR FILTRATION RATE > 60; GLUCOSE 98 mg/dL (70-100); POTASSIUM 4.4 mEq/L (3.5-5.2); SODIUM 135 mEq/L (134-144)
[2017-08-30 19:50] LABS: INR 1.09 (0.83-1.16)
[2017-08-30 19:51] LABS: APTT 33.2 SEC (23.0-38.0)
[2017-08-30] MEDS ORDERED: ONDANSETRON DISINTEGRATING 4 MG TAB PO PRN ×2 (21:48→21:53)
[2017-08-30] MEDS ORDERED: ONDANSETRON 4 MG/2 ML VIAL IVP PRN (21:48)
[2017-08-30] MEDS ORDERED: ACETAMINOPHEN 325 MG TAB PO PRN (21:48)
[2017-08-30] MEDS ORDERED: ACETAMINOPHEN 500 MG TAB PO PRN (21:53)
[2017-08-30] MEDS ORDERED: VANCOMYCIN HCL/NORMAL SALINE 250 ML IV ONE (21:53)
--- NOTE | 2017-08-30 22:20 | GHP ---
[f rep st] HISTORY AND PHYSICAL DATE OF ADMISSION: 08/30/2017 CHIEF COMPLAINT: Fevers and positive blood cultures, in the setting of recent spine surgery. HISTORY OF PRESENT ILLNESS: This is a 71-year-old female with a history of a renal transplant. She underwent spine surgery July 20, which was uncomplicated. The exact crinology of what went on [place] is a little bit unclear, although she is being followed by Dr. Summers with Infectious Disease an d probably can rule out for more detail. It appears that she had postoperative fevers with a fluid c ollection. She had debridement done last week. Wound cultures and blood cultures grew out Granulica tella adiacens, and intraoperative wound culture grew out Enterococcus that was sensitive to ampicill in. She has been on IV ampicillin since then but has had persistent fevers. These debridements were done at [facility]. She has had night sweats. No significant worsening back pain. Although s he does have chronic back pain. REVIEW OF SYSTEMS: A 10-point review of systems was obtained and was negative. PAST MEDICAL HISTORY: 1. 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 Cele de paz is status post renal transplant. 2. Previous cervical spine surgery. 3. Type 2 diabetes. 4. Peripheral neuropathy. PAST SURGICAL HISTORY: Cervical and lumbar fusion as well as gastric bypass surgery. SOCIAL HISTORY: Quit smoking at age 30. Rare alcohol. Lives with her . FAMILY HISTORY: Reviewed noncontributory. PHYSICAL EXAM: VITAL SIGNS: Afebrile, blood pressure is 156/82, heart rate 81, oxygen saturation 96 % on room air. GENERAL: The patient is well developed, no apparent distress. HEENT: Nonicteric scl erae. Extraocular movements intact. Moist mucous membranes. NECK: Supple. No thyromegaly. LUNGS : Good effort. Clear to auscultation bilaterally. CARDIOVASCULAR: Regular rate and rhythm. No mu rmurs, gallops. ABDOMEN: Positive bowel sounds. Soft, nontender, nondistended. No hepatomegaly. EXTREMITIES: No clubbing, cyanosis, or edema. BACK: Shows a PRINCESS drain with serosanguineous drainage . No significant erythema. EXTREMITIES: No clubbing, cyanosis, or edema. SKIN: Without rash or i ntact. NEUROLOGIC: Moving all 4 extremities equally. PSYCH: Normal affect. LABS: White blood cell count 8, hemoglobin 9, platelets are 296. Chemistries normal. ASSESSMENT: This is a 71-year-old female with a history of back surgery with lumbar spinal hardware revision and status post debridement on August 22 on IV antibiotics for her Granulicatella and Entero coccus but with persistent fevers and reportedly continued positive blood cultures. PLAN: 1. Postoperative spine infection and bacteremia. We will continue Zosyn that was ordered by Infecti ous Disease. We will have Infectious Disease see the patient. It does appear that Dr. Summers knows in more details about the case as he has been following it for the last month or so. I am going to giv e 1 dose of vancomycin tonight until Infectious Disease can see the patient as well. We will have Ne urosurgery see the patient. 2. History of end-stage renal disease status post transplant. Continue anti-rejection medications s ee medications. 3. History of type 2 diabetes. She does not appear to be on any medications for this. We will cont inue to watch her blood sugars. /[id number]/MODL
[2017-08-30] MEDS: traMADol 50 MG TAB PO SCH (22:37)
[2017-08-30] MEDS: POLYETHYLENE GLYCOL 3350 17 GM PKT PO SCH (23:30)
[2017-08-31] MEDS: oxyCODONE IR 5 MG TAB PO PRN ×2 (00:14→13:03)
[2017-08-31] MEDS: PIPERACILLIN/TAZO 3.375 GM/DEX 50 ML IV SCH ×4 (02:28→20:20)
[2017-08-31] MEDS: DIAZEPAM 5 MG TAB PO PRN ×2 (03:14→17:06)
[2017-08-31] MEDS: ALTEPLASE 2 MG VIAL IVP PRN ×3 (03:16→13:03)
[2017-08-31] MEDS: TACROLIMUS 1 MG CAP PO SCH ×2 (05:40→17:52)
[2017-08-31] MEDS: traZODone 50 MG TAB PO SCH ×2 (05:44→23:13)
[2017-08-31] MEDS: METHOCARBAMOL 750 MG TAB PO PRN (05:59)
[2017-08-31] MEDS ORDERED: MYCOPHENOLATE SODIUM 360 MG PO SCH (06:00)
[2017-08-31 06:04] LABS: % IMMATURE GRANULYOCYTES 0.3 % (0.0-1.1); ABSOLUTE IMMATURE GRANULOCYTES 0.02 10^3/uL (0.00-0.10); ADD DIFF? NO; ADD MORPH? NO; ADD SCAN? NO; ATYPICAL LYMPHOCYTE FLAG 20 (0-99); FRAGMENT RBC FLAG 60 (0-99); HEMATOCRIT 32.8 % (38.0-47.0); HEMOGLOBIN 10.2 g/dL (12.6-16.3); LEFT SHIFT FLG 0 (0-99); LIPEMIA HEMOLYSIS FLAG 80 (0-99); MEAN CELL HEMOGLOBIN 26.6 pg (27.9-34.1); MEAN CELL HEMOGLOBIN CONCENTR. 31.1 g/dL (32.4-36.7); MEAN CELL VOLUME 85.6 fL (81.5-99.8); MEAN PLATELET VOLUME 11.2 fL (8.7-11.7); PLATELET CLUMPS FLAG 20 (0-99); PLATELET COUNT 305 10^3/uL (150-400); RED BLOOD CELL COUNT 3.83 10^6/uL (4.18-5.33); RED CELL DISTRIBUTION WIDTH 18.2 % (11.5-15.2)
[2017-08-31 06:24] LABS: ANION GAP 7 mEq/L (8-16); CARBON DIOXIDE 26 mEq/l (22-31); CHLORIDE 103 mEq/L (97-110); CREATININE 0.9 mg/dL (0.6-1.0); GLOMERULAR FILTRATION RATE > 60; GLUCOSE 79 mg/dL (70-100); POTASSIUM 4.5 mEq/L (3.5-5.2); SODIUM 136 mEq/L (134-144)
[2017-08-31] MEDS: ENOXAPARIN 40 MG/0.4 ML SYR SC SCH (08:15)
[2017-08-31] MEDS: CETIRIZINE 10 MG TAB PO SCH (08:15)
[2017-08-31] MEDS: SENNOSIDES/DOCUSATE SODIUM TAB PO SCH ×3 (08:15→20:25)
[2017-08-31] MEDS: CALCIUM CARBONATE 500 MG TAB PO SCH ×3 (08:15→17:00)
[2017-08-31] MEDS: morphINE SR 15 MG TAB PO SCH ×2 (08:15→20:21)
[2017-08-31] MEDS: POLYETHYLENE GLYCOL 3350 17 GM PKT PO SCH ×3 (08:16→20:26)
[2017-08-31] MEDS: PANTOPRAZOLE SODIUM 40 MG TAB PO SCH (08:16)
[2017-08-31] MEDS: traMADol 50 MG TAB PO SCH ×3 (08:16→20:22)
[2017-08-31] MEDS: PREGABALIN 100 MG CAP PO SCH ×2 (08:58→20:22)
[2017-08-31] MEDS: PRASTERONE PO SCH (08:58)
--- NOTE | 2017-08-31 10:27 | HOSPPROG ---
Hospitalist Progress Note Assessment/Plan: DIAGNOSES: -Acute Febrile Infectious Illness perists despite antibiotics -Previous Bacetermai (enterococcus and Granulicatella) after lumbar spine hardware revision at end of June -ongoing back pain requiring narcotic analgesic -end-stage renal disease with transplant in place, with good renal function at this time -type 2 diabetes, not requiring medications, good sugar control at this time -somewhat impaired mobility due to her pain At this point will need to get records from [facility] to review further her previous diagnostic studies and cultures. It will be important to be sure we have all the details straight. What I cannot answer at this time from the information I have is whether there might be some anatomic abnormality that we should be imaging or somehow treating other than just antibiotics. The 2 organisms of Enterococcus and granulicatella should both be responsive to the beta-lactam groups as well as other antibiotics. It will be important to look for sensitivities on the enterococcus however. I have reviewed her case in detail with Dr. Justin Paula and will review with Dr. Miranda as well. PLANS: Continue current empiric antibiotics Obtain records from [facility] Other changes after review of records and review with Dr. Miranda SUBJECTIVE: Still some chills and sweats during the night Still with a lot of back pain but with narcotics is able to get up and walk in the hallway Moving bowels okay, emptying bladder OK No nausea vomiting and is eating well OBJECTIVE Vitals reviewed: T-max 37.4 degrees otherwise normal Food Equipment Service Technician, my review: Exam: alert oriented skin warm dry color ok resps not labored lungs clear BSs heart regular abd soft nondistended nontender, bowel sounds present limbs warm, no edema Eduard-Monet drain still in her lumbar back is draining a slightly bloody serous fluid that does not look purulent, but will want to send samples of this to the lab iv site ok Objective: Vital Signs Temp Pulse Resp BP Pulse Ox 36.8 C 70 16 114/61 92 08/31/17 07:19 08/31/17 07:19 08/31/17 07:19 08/31/17 07:19 08/31/17 07:19 Laboratory Results 08/31/17 05:45 08/31/17 05:45 08/30/17 08/31/17 09/01/17 06:59 06:59 06:59 Intake Total 600 Output Total 1135 Balance -535 PT 14.0 SEC (12.0-15.0) 08/30/17 19:20 INR 1.09 (0.83-1.16) 08/30/17 19:20 ICD10 Worksheet Patient Problems: Problems Problem Status Onset Fever Acute Fusion of spine of cervical region Acute Fusion of spine of lumbar region Acute
[2017-08-31] MEDS: predniSONE 5 MG TAB PO SCH (11:51)
[2017-08-31] MEDS ORDERED: MAGNESIUM HYDROXIDE 30 ML UDCUP PO PRN (12:45)
[2017-08-31] MEDS ORDERED: POLYETHYLENE GLYCOL 3350 17 GM PKT PO PRN (12:45)
[2017-08-31] MEDS ORDERED: LACTULOSE 20 GM/30 ML UDCUP PO PRN (12:45)
[2017-08-31] MEDS ORDERED: BISACODYL 10 MG SUPP PR PRN (12:45)
--- NOTE | 2017-08-31 15:55 | PDMN ---
Medical Necessity Medical necessity: est los>2mn for post op spine infection with bacteremia, for IV abx, ID consult; comorbid DM, ESRD s/p transplant; per order and H&P 08/30/17
[2017-08-31] MEDS: MYCOPHENOLATE SODIUM 180 MG TAB.DR PO SCH (17:52)
[2017-08-31] MEDS ORDERED: MYCOPHENOLATE SODIUM 180 MG TAB.DR PO SCH (18:00)
[2017-08-31] MEDS ORDERED: morphINE SR 15 MG TAB PO ONE (20:10)
[2017-08-31] MEDS: MELATONIN 3 MG TAB PO SCH (23:13)
[2017-09-01] MEDS: PIPERACILLIN/TAZO 3.375 GM/DEX 50 ML IV SCH ×4 (01:26→21:04)
[2017-09-01] MEDS: DIAZEPAM 5 MG TAB PO PRN (03:26)
--- NOTE | 2017-09-01 04:25 | GCON ---
[f rep st] CONSULTATION INPATIENT INFECTIOUS DISEASE CONSULTATION REFERRING PHYSICIAN: Truman Conti MD REASON FOR CONSULTATION: Bacteremia recently with fevers. HISTORY OF PRESENT ILLNESS: Patient is a 71-year-old female, who underwent a washout of her lumbar s pine area after developing postoperative infection and infected collection earlier this month at [facility]. The culture results from that surgery grew both enterococcus faecalis and Gran ulicatella species. This was formerly a nutritionally deficient Streptococcus. Patient was placed o n IV ampicillin and [facility]. Reportedly the patient had a fever to 102 on her 1st night in the jail facility. She then apparently had another fever of uncle ar severity the following night. This led the nursing facility to have the patient referred in to [facility] Emergency Room. Patient was admitted and antibiotic coverage was expanded fro m ampicillin to Zosyn. Since admission, she has been afebrile. Currently, the patient feels fairly well although she states at various times over the past 3-4 days in the nursing facility she has felt fatigued and a bit clammy. PAST MEDICAL HISTORY: 1. History of renal transplantation. 2. Type 2 diabetes. 3. Peripheral neuropathy. PAST SURGICAL HISTORY: 1. Status post kidney transplant approximately 1 year ago. 2. Status post cervical spine surgery. 3. Status post lumbar spine surgery in June of this year. 4. Status post gastric bypass surgery. ANTIBIOTICS: Zosyn. ALLERGIES: The patient has no known medical allergies. SOCIAL HISTORY: Patient has a remote history of tobacco use. Rare alcohol use. The patient is aries ied and lives with her . FAMILY HISTORY: Reviewed, but noncontributory. REVIEW OF SYSTEMS: Other than that detailed above in the history of present illness, comprehensive 1 0-system review is negative. PHYSICAL EXAMINATION: VITAL SIGNS: Temperature maximum 37.0, temp current 36.8; heart rate is 84; r espiratory rate is 16; blood pressure is 103/64. GENERAL: The patient is a well-formed, well-nouris hed female in no acute distress. She is not toxic in appearance. She is alert and oriented x3. She has a pleasant demeanor. HEENT: Normocephalic for age. Atraumatic. No scleral icterus. No oral lesion or drainage from the nares. Eyes: Conjunctivae are within normal limits. Pupils are equal a nd round bilaterally. NECK: Supple. No meningismus. LUNGS: Clear to auscultation bilaterally wit h good effort. HEART: Regular rate and rhythm. No significant peripheral edema. SKIN: Warm and d ry to the touch. No rash noted. The patient has PRINCESS drain coming out of operative wound in her lumba r spine area. Has some sanguinous or serosanguineous fluid. MUSCULOSKELETAL: No other muscle belly tenderness is noted. No joint line effusion or arthritis seen. NEURO: Cranial nerves 2 through 12 seem to be intact. Peripheral sensation seems intact in extremities. LABORATORY DATA: Patient has a CBC dated 08/31/2017, shows white blood cell count of 6.2, hemoglobin of 10.2, hematocrit 32.8, platelet count of 305. Differential is within normal limits. Serum chemi stries on 08/31/2017 are all within normal limits. Creatinine 0.9. Urinalysis on 08/30/2017 is norm al. MICROBIOLOGIC DATA: Patient has a back aspirate dated 08/30/2017, which is growing Enterococcus faec coby. Blood cultures dated 08/30/2017, are no growth to date. ASSESSMENT: Lumbar back infection secondary to nutritionally deficient Streptococcus and Enterococcu s. I suspect that the sample from the emergency room was probably taken from 1 of the PRINCESS drains. Th at leads to no surprise that PRINCESS drain is growing Enterococcus. We will continue on Zosyn expanded mo notherapy and monitor the patient over the next couple of days. If she remains afebrile and improvin g probably move back to ampicillin and continue the planned 6 week course from surgery. This was exp lained to the patient in detail. PLAN: 1. Continue monotherapy with Zosyn. 2. Follow clinical course and temp curve. /[id number]/MODL
--- NOTE | 2017-09-01 05:00 | GCON ---
[f rep st] CONSULTATION NEUROSURGICAL CONSULTATION CHIEF COMPLAINT: Back pain. HISTORY OF PRESENT ILLNESS: The patient is a 71-year-old female with a history of a previous renal t ransplant. She underwent an L1 to L5 instrumentation and fusion with an L4 wedge osteotomy on July 20, 2017. This was uncomplicated and she did well postoperatively, but then developed recurrent leg pain. An MRI demonstrated a paraspinal fluid collection and she had a drain placed. This fluid was sent for culture and on approximately day 6, grew out P acnes. She was followed by Dr. Summers and con tinued her care at [facility]. She presented to [facility] with recurrent b ack pain and fevers. She was taken to the operating room on August [address] Yuri Miranda at [facility] where she underwent incision and drainage of her lumbar wound. Apparently those cul tures were positive for enterococcus and she has been on IV ampicillin. She was transferred from [facility] to [facility] for ongoing positive blood cultures. She currently comp lains of ongoing back pain. This was associated with some pain in her lateral thigh and down toward her legs. She denies any weakness or paresthesias. PAST MEDICAL HISTORY: 1. End-stage renal disease, status post renal transplant. 2. Previous cervical spine surgery. 3. Diabetes. 4. Peripheral neuropathy. PAST SURGICAL HISTORY: 1. Previous cervical lumbar fusion. 2. Gastric bypass. 3. Renal transplant. MEDICATIONS: Prior to admission are vitamin D, fish oil, B complex, Tylenol, calcium, Zyrtec, Valium , melatonin, Robaxin, MS Contin, Zofran, Oxy IR, Protonix, MiraLAX, prednisone, Senokot, Prograf, tra madol, trazodone. ALLERGIES: No known drug allergies. FAMILY HISTORY: Patient has no family history of spine infections. SOCIAL HISTORY: Patient is and lives with her . She has currently been in rehab. e does not drink or smoke. REVIEW OF SYSTEMS: Negative. PHYSICAL EXAM: GENERAL: Patient is a 71-year-old female, sitting in a chair, in no apparent distres s. HEAD, EYES, EARS, NOSE, AND THROAT: Negative for drainage. EXTREMITIES: [place], warm, and dry. NEUROLOGICAL: Patient is awake, alert, oriented x4. Pupils equal, round, reactive to light. Extrao cular motions are intact. There is no evidence of facial droop. Tongue and uvula are midline. Spin al access muscles are intact. Her motor strength is 5/5 in all muscle groups of her upper and lower extremities bilaterally. Sensation is grossly intact to light touch in both upper and lower extremit ies bilaterally. Deep tendon reflexes are 1+/4 in the bilateral biceps, triceps, brachioradialis, pa tellar, and Achilles. There is a negative Lam's with no clonus. SEROLOGICAL STUDIES: Recent CBC is 6.5. Hemoglobin is 10.2, and platelet count is 305. Her high school chemistry teacher ry panel is unremarkable. She did have a back aspirate on 08/30/2017 which is growing out Enterococc us faecalis. IMPRESSION: This is a 71-year-old female who is status post L1 to L5 fusion, was complicated by an e nterococcus wound infection. She is neurologically stable. PLAN: All the above discussed in detail with the patient. This patient was seen and examined by Dr. Ruth chester. At this point in time, she is on IV antibiotics under the care of Infectious Disease, which it is currently Zosyn. At this point in time, the patient is neurological intact and will continue to follow her on a conservative basis. Please call with any neurological changes. /[id number]/MODL
[2017-09-01] MEDS: MYCOPHENOLATE SODIUM 180 MG TAB.DR PO SCH ×2 (06:01→18:30)
[2017-09-01] MEDS: TACROLIMUS 1 MG CAP PO SCH ×2 (06:07→18:31)
[2017-09-01] MEDS: oxyCODONE IR 5 MG TAB PO PRN (06:13)
--- NOTE | 2017-09-01 08:02 | NEUSURGPN ---
Assessment/Plan: 71y/o female s/p L1-L5 PSF on 07/20/17 with history of wound infection -Continue PRINCESS drain -Keep incision clean and dry -Optimize pain management -Will s/o off for the weekend. if cleared by medicine for discharge patient should follow up next week for a wound check -Seen by Dr Palacio and myself. Please notify NS with any change in neuro/motor exam Subjective: Incisional site low back pain. Denies any new leg pain, numbness, tingling or weakness Objective: NAD A&Ox3 MAEx4 03/24 and equal in BUE and BLE - Physician Patient Seen by : [facility] Neurosurgery Physical Exam - Vitals, I&O, Labs I and O 08/31/17 09/01/17 09/02/17 05:59 05:59 05:59 Intake Total 600 850 Output Total 1135 990 12 Balance -535 -140 -12 Weight 65 kg Intake: Oral (ml) 150 850 IV Infused (ml) 450 Piperacillin/Tazo 3.375 100 gm/Dex 50 ml @ 100 mls/hr IV Q6H JEREMIAH Rx#: [id number] Vancomycin HCl/Normal 250 Saline 250 ml @ 250 mls/ hr IV ONCE ONE Rx#: [id number] Output: Urine (ml) 1100 950 Toilet 1100 950 PRINCESS Drain Output (ml) 35 40 12 #1 Posterior Back 35 40 12 Other: Number of Voids 3 Diapers/Briefs 1 Toilet 2 1 1 Number of Stools Toilet 1 Vital Signs Temp Pulse Resp BP Pulse Ox 36.6 C 68 16 129/61 H 91 L 09/01/17 03:15 09/01/17 03:15 09/01/17 03:15 09/01/17 03:15 09/01/17 03:15 Laboratory Results 08/31/17 05:45 08/31/17 05:45 ICD10 Worksheet Patient Problems: Problems Problem Status Onset Fever Acute Fusion of spine of cervical region Acute Fusion of spine of lumbar region Acute
[2017-09-01] MEDS: traMADol 50 MG TAB PO SCH ×3 (09:03→21:05)
[2017-09-01] MEDS: morphINE SR 15 MG TAB PO SCH ×2 (09:03→21:05)
[2017-09-01] MEDS: PREGABALIN 100 MG CAP PO SCH ×2 (09:03→21:06)
[2017-09-01] MEDS: CALCIUM CARBONATE 500 MG TAB PO SCH ×3 (09:37→18:32)
[2017-09-01] MEDS: SENNOSIDES/DOCUSATE SODIUM TAB PO SCH ×4 (09:41→22:19)
[2017-09-01] MEDS: CETIRIZINE 10 MG TAB PO SCH (09:41)
[2017-09-01] MEDS: PANTOPRAZOLE SODIUM 40 MG TAB PO SCH (09:42)
[2017-09-01] MEDS: ENOXAPARIN 40 MG/0.4 ML SYR SC SCH (09:42)
[2017-09-01] MEDS: POLYETHYLENE GLYCOL 3350 17 GM PKT PO SCH ×3 (09:42→21:09)
--- NOTE | 2017-09-01 10:52 | ASMTCMCOM ---
CM Note CM Note Notes: Pt admitted with postop spine infection and bacteremia. Pt recently at [facility] twice but she prefers to go home with home care. [facility] had previously been involved with pt before she returned to [facility]. They will review clinicals and meet with pt today. faxed referral. C/M to follow. Date Signed: 09/01/2017 10:51 AM Electronically Signed By:Jessica Duarte LCSW
[2017-09-01] MEDS: PRASTERONE PO SCH (10:53)
[2017-09-01] MEDS: predniSONE 5 MG TAB PO SCH (12:49)
--- NOTE | 2017-09-01 16:26 | PCMIDPN ---
Assessment/Plan: # Granulicatella bacteremia and Enterococcal L3-L5 epidural abscess s/p washout 08/22, TTE negative. CrCl 50. AF since admit. Nl WBC. difficult to interpret culture results fluid from drain collected at admit. --renal dose PCN 8gm IV continuous infusion for nutrient variant Streptococcus and Enterococcus, if can go home. 10/17/17 stop date for 8 weeks --continue zosyn until tomorrow with possible dc medications 08/30 Drain PRINCESS : enterococcus faecalis 08/30 blood cx : (2) NGTD Medication Zosyn 3.375 g IV Q 6 Subjective: Patient did not like the [facility], she states they were giving her antibiotics at wrong times. She feels well and would like to be discharged to home Objective: Vital Signs Temp Pulse Resp BP Pulse Ox 36.8 C 66 16 105/58 L 91 L 09/01/17 16:00 09/01/17 16:00 09/01/17 16:00 09/01/17 16:00 09/01/17 16:00 Laboratory Results 08/31/17 05:45 08/31/17 05:45 08/31/17 09/01/17 09/02/17 05:59 05:59 05:59 Intake Total 600 850 480 Output Total 1135 990 12 Balance -535 -140 468 - Physical Exam General Appearance: alert, no apparent distress Respiratory: lungs clear Neck: supple Cardiac/Chest: regular rate, rhythm, No systolic murmur Extremities: No pedal edema Abdomen: non-tender, soft Back: other (Incision without erythema, PRINCESS drain with serosanguineous fluid) Skin: No rash Neuro/Psych: alert, normal mood/affect, oriented x 3 - Line/s RUE PICC Lines: No drainage, No erythema - Time Spent With Patient Time Spent with Patient: greater than 35 minutes Time Spent with Patient: Greater than 35 minutes spent on this patients care, greater than 50% of time spent counseling, educating, and coordinating care regarding the above mentioned plan. ICD10 Worksheet Patient Problems: Problems Problem Status Onset Fever Acute Fusion of spine of cervical region Acute Fusion of spine of lumbar region Acute
--- NOTE | 2017-09-01 16:45 | ASMTCMCOM ---
CM Note CM Note Notes: Pt will need IV ABX at DC. She will need IV penicillin continuous infusion through 10/17. Sent referral to [facility] to run benefits. [facility] has accepted pt. C/M to follow. Date Signed: 09/01/2017 04:45 PM Electronically Signed By:eJssica Duarte LCSW
--- NOTE | 2017-09-01 17:51 | HOSPPROG ---
Hospitalist Progress Note Assessment/Plan: DIAGNOSES: -Acute Infectious Illness of lumbar surgical wound peristing fever despite antibiotics -Previous Bacetermia (enterococcus and Granulicatella) after lumbar spine hardware revision at end of June -ongoing back pain requiring narcotic analgesic -end-stage renal disease with transplant in place, with good renal function at this time -type 2 diabetes, not requiring medications, good sugar control at this time -somewhat impaired mobility due to her pain PLANS: Continue current antibiotic Continue physical occupational therapy The patient is actually making enough progress that she may be stable for discharge from the hospital in next 1-2 days. She would like to try and go home as opposed to back to the shelter facility. I think she is ambulating well enough that I am not certain that will be able to get home IV antibiotics covered as there may be insurance issues. Case management is working on this. I reviewed the case in detail today with Dr. Anna Cotto SUBJECTIVE: At this point her chills and sweats have decreased remarkably Back pain is getting better She is ambulating more easily OBJECTIVE Vitals reviewed: No fever, otherwise normal Exam: alert oriented skin warm dry color ok resps not labored lungs clear BSs heart regular abd soft nondistended nontender, bowel sounds present limbs warm, no edema Eduard-Monet drain still in her lumbar back is still draining a slightly bloody serous fluid iv site ok Objective: Vital Signs Temp Pulse Resp BP Pulse Ox 36.8 C 66 16 105/58 L 91 L 09/01/17 16:00 09/01/17 16:00 09/01/17 16:00 09/01/17 16:00 09/01/17 16:00 Laboratory Results 08/31/17 05:45 08/31/17 05:45 08/31/17 09/01/17 09/02/17 06:59 06:59 06:59 Intake Total 600 850 930 Output Total 1135 1002 Balance -535 -152 930 PT 14.0 SEC (12.0-15.0) 08/30/17 19:20 INR 1.09 (0.83-1.16) 08/30/17 19:20 - Time Spent With Patient Time Spent with Patient: greater than 35 minutes Time Spent with Patient: Greater than 35 minutes spent on this patients care, greater than 50% of time spent counseling, educating, and coordinating care regarding the above mentioned plan. ICD10 Worksheet Patient Problems: Problems Problem Status Onset Fever Acute Fusion of spine of cervical region Acute Fusion of spine of lumbar region Acute
--- NOTE | 2017-09-01 18:09 | ASMTCMCOM ---
CM Note CM Note Notes: Aditi ran benefits for pt's IV ABX at [facility]. Pt will need 8 weeks of ABX. The cost will be $71.89/day per dispense of ABX and $35/day for supplies. The total per week will be $316.89. C/M will discuss with pt tomorrow and let pt decide if she prefers to pay for IV ABX in the home vs 3E infusion vs SNF. Date Signed: 09/01/2017 06:08 PM Electronically Signed By:Jessica Duarte LCSW
[2017-09-01] MEDS: MELATONIN 3 MG TAB PO SCH (21:04)
[2017-09-01] MEDS: traZODone 50 MG TAB PO SCH (22:19)
[2017-09-02] MEDS: PIPERACILLIN/TAZO 3.375 GM/DEX 50 ML IV SCH ×4 (02:56→19:39)
[2017-09-02] MEDS: METHOCARBAMOL 750 MG TAB PO PRN ×2 (03:58→21:29)
[2017-09-02] MEDS: oxyCODONE IR 5 MG TAB PO PRN ×3 (05:27→18:29)
[2017-09-02] MEDS: MYCOPHENOLATE SODIUM 180 MG TAB.DR PO SCH ×2 (05:27→18:26)
[2017-09-02] MEDS: TACROLIMUS 1 MG CAP PO SCH ×2 (05:28→18:24)
[2017-09-02] MEDS: traMADol 50 MG TAB PO SCH ×3 (08:50→20:52)
[2017-09-02] MEDS: SENNOSIDES/DOCUSATE SODIUM TAB PO SCH ×4 (08:50→22:08)
[2017-09-02] MEDS: morphINE SR 15 MG TAB PO SCH ×2 (08:50→20:51)
[2017-09-02] MEDS: PREGABALIN 100 MG CAP PO SCH ×2 (08:51→20:52)
[2017-09-02] MEDS: CALCIUM CARBONATE 500 MG TAB PO SCH ×3 (08:51→18:23)
[2017-09-02] MEDS: PANTOPRAZOLE SODIUM 40 MG TAB PO SCH (08:52)
[2017-09-02] MEDS: ENOXAPARIN 40 MG/0.4 ML SYR SC SCH (08:53)
[2017-09-02] MEDS: POLYETHYLENE GLYCOL 3350 17 GM PKT PO SCH ×3 (08:54→20:51)
[2017-09-02] MEDS: CETIRIZINE 10 MG TAB PO SCH (10:12)
[2017-09-02] MEDS: PRASTERONE PO SCH (10:13)
[2017-09-02] MEDS: predniSONE 5 MG TAB PO SCH (12:23)
--- NOTE | 2017-09-02 12:30 | PCMIDPN ---
Assessment/Plan: Assessment/Plan: 1. Granulicatella bacteremia and Enterococcal L3-L5 epidural abscess s/p washout 08/22 -TTE negative. -f/u blood cx from 08/30/17 ngtd -spoke to micro: Enterococcal isolate is sensitive to Amp, PCN, Vanco. -currently on zosyn -Change to PCN when leaves to home via continuous infusion. -Creatinine clearance calculated yesterday as around 50 -Dosing of PCN adjusted based on that for now. to PCN 8gm over 24hours. Tentative end date: 10/17/17 -f/u with Dr. Summers in the OP. -plan of care reviewed with patient. -Will fill out interagency. Pt to decide on home vs 3E infusions Meds Zosyn 3.375gm iv q6- Subjective: Afebrile. feels better. had loose bm today after several days of no BM's. Denies sob, cough. back stable. brace present.drain in place Objective: Vital Signs Temp Pulse Resp BP Pulse Ox 36.7 C 74 17 117/62 93 09/02/17 07:19 09/02/17 07:19 09/02/17 07:19 09/02/17 07:19 09/02/17 07:19 Laboratory Results 08/31/17 05:45 08/31/17 05:45 09/01/17 09/02/17 09/03/17 05:59 05:59 05:59 Intake Total 850 1430 Output Total 990 17 Balance -140 1413 - Physical Exam General Appearance: alert, no apparent distress Respiratory: lungs clear Cardiac/Chest: regular rate, rhythm Extremities: other (no swelling) Abdomen: non-tender, soft Skin: other (no rash. back incision site covered by dressing. mildly tender on the left side of incisions where more swelling is noted. ) ICD10 Worksheet Patient Problems: Problems Problem Status Onset Fever Acute Fusion of spine of cervical region Acute Fusion of spine of lumbar region Acute
--- NOTE | 2017-09-02 12:34 | PDIAF ---
- Diagnosis Diagnosis: Bacteremia + Enterococcal Epidural abscess Code Status: Full Code - Medication Management Discharge Medications: Medications to Continue on Transfer Cetirizine [ZyrTEC 10 mg (*)] 10 mg PO DAILY 08/18/15 [Last Taken 2 Weeks Ago ~ 08/16/17] traMADol [Ultram 50 mg (*)] 100 mg PO TID 08/18/15 [Last Taken 08/30/17 12:00] traZODone [traZODONE 100MG (*)] 50 - 100 mg PO HS 08/18/15 [Last Taken 08/29/17] Mycophenolate Sodium [Myfortic] 360 mg PO BID@01/24/17 [Last Taken 06:00] Pantoprazole Sodium [Protonix 40mg (*)] 40 mg PO DAILY 01/24/17 [Last Taken 10/06] predniSONE 5 mg PO DAILY@01/24/17 [Last Taken 08/30/17 09:00] Cholecalciferol Vit D3 [Vitamin D3 (*)] 5,000 units PO DAILY 06/16/17 [Last Taken 3 Days Ago ~08/27/17] [place]-3 Fatty Acids [Fish Oil 1000 mg (*)] 1,000 mg PO HS 06/16/17 [Last Taken 08/29/17] Vitamin B Complex [B Complex] 1 tab PO DAILY 06/16/17 [Last Taken 08/30/17] Calcium Citrate 250 mg PO TIDMEAL 07/20/17 [Last Taken 08/30/17 12:00] Melatonin [Melatonin 5 mg] 10 mg PO HS 07/20/17 [Last Taken 1 Month Ago ~] Prasterone (Dhea) [Dhea 25] 25 mg PO DAILY 07/20/17 [Last Taken 08/30/17] Pregabalin [LYRICA] 200 mg PO BID 07/20/17 [Last Taken 08/30/17 09:00] Tacrolimus [Prograf] 2 mg PO DAILY@07/20/17 [Last Taken 08/30/17] Tacrolimus [Prograf] 3 mg PO DAILY@07/20/17 [Last Taken 08/29/17] Acetaminophen [Tylenol ES 500 mg (*)] 1,000 mg PO Q8HRS PRN #0 tab 07/25/17 [ Last Taken 08/30/17] Diazepam [Valium 5 MG (*)] 5 mg PO Q6HRS PRN #0 tab 07/25/17 [Last Taken ] Methocarbamol [Robaxin 750 mg (*)] 750 mg PO QID PRN #0 tab 07/25/17 [Last Taken 08/30/17 12:00] Ondansetron Odt [Zofran Odt 4 mg (*)] 4 - 8 mg PO Q6HRS PRN #0 tab 07/25/17 [ Last Taken Unknown] Polyethylene Glycol 3350 [Miralax 17 gm (*)] 17 gm PO TID #0 pkt 07/25/17 [Last Taken 08/29/17] Sennosides/Docusate Sodium [Senokot-S] 1 - 2 tab PO BID #0 tab 07/25/17 [Last Taken 08/30/17] morphINE SR [Ms Contin/Oramorph 15 mg (*)] 15 mg PO BID #0 tab 07/25/17 [Last Taken 08/30/17 09:00] oxyCODONE IR [Oxycodone Ir (*)] 5 - 10 mg PO Q4HRS PRN #0 tab 07/25/17 [Last Taken 08/30/17] Intermediate Antibiotics: Penicillin 8gm IV via continuous infusion over 24 hours Instructional Supervisor Antibiotic Stop Date: 10/17/17 Discharge Medications: Refer to the Discharge Home Medication list for PRN reason. PICC Care - Routine: Yes - Labs/Radiology CBC Date: 09/04/17 (q mondays) CMP Date: 09/04/17 (q mondays) CRP Date: 09/04/17 (q mondays) Call or Fax Lab and Imaging Results to: Dr. [phone] - Follow Up Care Current Providers and Referrals: Andrew Summers MD [Medical Doctor] - 09/13/17 11:00 am Patient,NotPresent [Unknown] - As per Instructions
--- NOTE | 2017-09-02 16:34 | HOSPPROG ---
Hospitalist Progress Note Assessment/Plan: The patient is a 71-year-old female with PMH diabetes, kidney transplant who was admitted for spinal epidural abscess and sepsis. ASSESSMENT/PLAN: Spinal epidural abscess Sepsis, resolved End-stage renal disease, status post kidney transplant Diabetes mellitus type 2, diet controlled Debility Back pain, secondary to above -ID following-appreciate recommendations. Patient to discharge on continuous penicillin for 8 weeks. -plan to send patient back to [facility] tomorrow. Discussed home antibiotics, but her insurance does not cover this. -Continue current medications -I have discussed the case with patient, his , his nurse, and case management. -This patient is new to me. Reviewed patient's chart/records for this visit. VTE prophylaxis: Lovenox Code Status: Full Status: Inpatient for greater than 2 midnight stay. Disposition: [facility] with discharge anticipated tomorrow. ____ SUBJECTIVE: Today patient feels well. She continues to have back pain. She is wearing her brace. OBJECTIVE: Physical Exam: General: The patient is an elderly female who is alert and in no acute distress. HEENT: normocephalic, extraocular movements intact, conjunctivae clear. Mucous membranes moist. Neck: trachea midline, no visible masses. CV: +S1/S2, RRR, no MRG. Resp: unlabored, CTAB no RRW. Abd: soft and nondistended. Bowel sounds present. Musculoskeletal: Normal muscle tone/bulk. Dressing on lumbar spine clean dry and intact. Neuro: cranial nerves II XII grossly intact. Intact gross motor and sensory function. Psych: Appropriate mood and appropriate affect. Skin: No pallor. Heme/lymph: No peripheral edema at bilateral lower legs. Labs/Imaging/Other Tests: Personally reviewed/interpreted. Hemoglobin improved. Culture-Enterococcus faecalis. Objective: Vital Signs Temp Pulse Resp BP Pulse Ox 36.6 C 82 16 130/77 H 93 09/02/17 15:25 09/02/17 15:25 09/02/17 15:25 09/02/17 15:25 09/02/17 15:25 Laboratory Results 08/31/17 05:45 08/31/17 05:45 09/01/17 09/02/17 09/03/17 05:59 05:59 05:59 Intake Total 850 1430 Output Total 990 17 Balance -140 1413 PT 14.0 SEC (12.0-15.0) 08/30/17 19:20 INR 1.09 (0.83-1.16) 08/30/17 19:20 - Time Spent With Patient Time Spent with Patient: greater than 35 minutes Time Spent with Patient: Greater than 35 minutes spent on this patients care, greater than 50% of time spent counseling, educating, and coordinating care regarding the above mentioned plan. - Pending Discharge Pending Discharge Within 24 Hours: Yes Pending Discharge Date: 09/03/17 Pending Discharge Time: 11:00 ICD10 Worksheet Patient Problems: Problems Problem Status Onset Fever Acute Fusion of spine of cervical region Acute Fusion of spine of lumbar region Acute
--- NOTE | 2017-09-02 16:55 | ASMTCMCOM ---
CM Note CM Note Notes: Spoke with patient and at length about the costs of infusion at home per AMerita . It would be $316.89 per week for eight weeks. They felt they could not afford this with the infusion at home. C/M contacted the infusion center who said that they only do once a day infusions and do not address continuous infusions. Pt realized that the other options was returning to rehab facility for the duration of her infusions. WHen C/M called [facility] in admissions said they had given her room away because patient had said she wasnt coming back. They said they had a shared room but would move her to a single room mid week when one opens. Patient said she would be willing to go then. Monique requested that it be in the morning because of shortage of staff late in the day . Spoke with Dr. Walls and she said she would d/c patient on Monday morning. Patient and spouse notified and in agreement. Case management will continue to follow. Date Signed: 09/02/2017 04:54 PM Electronically Signed By:BELEN Kelley
[2017-09-02] MEDS: traZODone 50 MG TAB PO SCH (21:27)
[2017-09-02] MEDS: MELATONIN 3 MG TAB PO SCH (21:27)
[2017-09-02] MEDS: DIAZEPAM 5 MG TAB PO PRN (23:10)
[2017-09-03] MEDS: PIPERACILLIN/TAZO 3.375 GM/DEX 50 ML IV SCH ×3 (02:17→13:43)
[2017-09-03 04:17] VITALS: RESP 16
[2017-09-03] MEDS: TACROLIMUS 1 MG CAP PO SCH (05:11)
[2017-09-03] MEDS: MYCOPHENOLATE SODIUM 180 MG TAB.DR PO SCH (05:11)
[2017-09-03 08:45] VITALS: BP 116/60; PULSE 80; TEMP 97.7; O2SAT 90
[2017-09-03] MEDS: ENOXAPARIN 40 MG/0.4 ML SYR SC SCH (08:51)
[2017-09-03] MEDS: POLYETHYLENE GLYCOL 3350 17 GM PKT PO SCH (08:52)
[2017-09-03] MEDS: PREGABALIN 100 MG CAP PO SCH (09:00)
[2017-09-03] MEDS: morphINE SR 15 MG TAB PO SCH (09:00)
[2017-09-03] MEDS: PANTOPRAZOLE SODIUM 40 MG TAB PO SCH (09:00)
[2017-09-03] MEDS: CALCIUM CARBONATE 500 MG TAB PO SCH ×2 (09:01→13:43)
[2017-09-03] MEDS: SENNOSIDES/DOCUSATE SODIUM TAB PO SCH ×2 (09:01→12:41)
[2017-09-03] MEDS: traMADol 50 MG TAB PO SCH (09:02)
--- NOTE | 2017-09-03 10:35 | PDDCSUM ---
Discharge Summary Discharge Summary: Date of Admission: August 30, 2017 Date of Discharge: September 03, 2017 Discharge Diagnoses: Spinal epidural abscess Back pain, secondary to above End-stage renal disease, status post kidney transplant Immune compromised status Diabetes mellitus type 2, diet controlled Debility Admission Diagnoses: Postoperative spine infection and bacteremia History of end-stage renal disease status post transplant History of type 2 diabetes History of Cory-en-Y gastric bypass Consultants: Neurosurgery-Dr. Miranda Infectious Disease-Dr. Justin Paula/Dr. Andrew Summers [facility] Course: The patient is a 71-year-old female who return to the hospital from a custodial facility which she had been discharged to on IV antibiotics after she underwent spine surgery with washout and debridement at [facility] on August 22. Prior to this, she had undergone an uncomplicated spine surgery with fusion on July 20, 2017. After the incision and drainage, she continued to have high fever and back pain at the custodial facility. She was sent back to [facility] Emergency Room, where she was admitted to the hospital. IV antibiotic coverage was expanded and she was seen by infectious disease specialists. She improved greatly and was discharged back to the custodial facility in fair condition to continue on antibiotics. Physical Exam: General: The patient is an elderly female who is alert and in no acute distress. HEENT: normocephalic, extraocular movements intact, conjunctivae clear, no lesions on face. Mucous membranes moist. Neck: trachea midline, no visible masses, no external lesions. Abd: soft and nondistended. Musculoskeletal: Slow antalgic gait. Neuro: cranial nerves II XII grossly intact. Intact gross motor and sensory function. Psych: appropriate mood/affect. Skin: No pallor. Heme/lymph: No peripheral edema. Condition: Fair. Discharged to: group home facility with IV antibiotics. Pertinent tests/labs/imaging: Culture of back aspirate-Enterococcus faecalis. Medications: Please see med rec form. Patient is to continue IV antibiotics ( Zosyn) until October 17, 2017 for total of 8 weeks. Special instructions: Continue with PT and OT. Get repeat labwork done every Monday for med monitoring.. Follow up: Follow up with Dr. Miranda on Sep 07 as planned for removal of PRINCESS drain. Follow up with ID Dr. Summers on Sep 13 at 11am. Follow up with PCP Norma Lee APN in 1-2 weeks. Follow up with Outpatient Dietitian Dr. Pimentel as planned. Greater than 30 minutes of total time was spent on counseling and coordination of care for this patient's discharge.
--- NOTE | 2017-09-03 11:02 | ASMTCMCOM ---
CM Note CM Note Notes: Chart reviewed. Per MD patient medically cleared for discharge to [facility]. Spoke to [facility] and they are ready to accept but patient will be in semiprivate room. Orders sent via [email or web address] (fka [employer]), PASRR completed. [facility] to arrange transport. She is on room air. CM available if further needs arise. Date Signed: 09/03/2017 11:01 AM Electronically Signed By:Casie Garg RN
[2017-09-03] MEDS: oxyCODONE IR 5 MG TAB PO PRN ×2 (11:10→14:37)
[2017-09-03] MEDS: CETIRIZINE 10 MG TAB PO SCH (12:40)
[2017-09-03] MEDS: PRASTERONE PO SCH (12:41)
[2017-09-03] MEDS: predniSONE 5 MG TAB PO SCH (13:43)
--- NOTE | 2017-09-03 14:58 | PDIAF ---
- Diagnosis Diagnosis: Bacteremia + Enterococcal Epidural abscess Code Status: Full Code - Medication Management Discharge Medications: Medications to Continue on Transfer Cetirizine [ZyrTEC 10 mg (*)] 10 mg PO DAILY 08/18/15 [Last Taken 2 Weeks Ago ~ 08/16/17] traMADol [Ultram 50 mg (*)] 100 mg PO TID 08/18/15 [Last Taken 08/30/17 12:00] traZODone [traZODONE 100MG (*)] 50 - 100 mg PO HS 08/18/15 [Last Taken 08/29/17] Mycophenolate Sodium [Myfortic] 360 mg PO BID@01/24/17 [Last Taken 06:00] Pantoprazole Sodium [Protonix 40mg (*)] 40 mg PO DAILY 01/24/17 [Last Taken 10/06] predniSONE 5 mg PO DAILY@01/24/17 [Last Taken 08/30/17 09:00] Cholecalciferol Vit D3 [Vitamin D3 (*)] 5,000 units PO DAILY 06/16/17 [Last Taken 3 Days Ago ~08/27/17] [place]-3 Fatty Acids [Fish Oil 1000 mg (*)] 1,000 mg PO HS 06/16/17 [Last Taken 08/29/17] Vitamin B Complex [B Complex] 1 tab PO DAILY 06/16/17 [Last Taken 08/30/17] Calcium Citrate 250 mg PO TIDMEAL 07/20/17 [Last Taken 08/30/17 12:00] Melatonin [Melatonin 5 mg] 10 mg PO HS 07/20/17 [Last Taken 1 Month Ago ~] Prasterone (Dhea) [Dhea 25] 25 mg PO DAILY 07/20/17 [Last Taken 08/30/17] Pregabalin [LYRICA] 200 mg PO BID 07/20/17 [Last Taken 08/30/17 09:00] Tacrolimus [Prograf] 2 mg PO DAILY@07/20/17 [Last Taken 08/30/17] Tacrolimus [Prograf] 3 mg PO DAILY@07/20/17 [Last Taken 08/29/17] Acetaminophen [Tylenol ES 500 mg (*)] 1,000 mg PO Q8HRS PRN #0 tab 07/25/17 [ Last Taken 08/30/17] Diazepam [Valium 5 MG (*)] 5 mg PO Q6HRS PRN #0 tab 07/25/17 [Last Taken ] Methocarbamol [Robaxin 750 mg (*)] 750 mg PO QID PRN #0 tab 07/25/17 [Last Taken 08/30/17 12:00] Polyethylene Glycol 3350 [Miralax 17 gm (*)] 17 gm PO TID #0 pkt 07/25/17 [Last Taken 08/29/17] Sennosides/Docusate Sodium [Senokot-S] 1 - 2 tab PO BID #0 tab 07/25/17 [Last Taken 08/30/17] morphINE SR [Ms Contin/Oramorph 15 mg (*)] 15 mg PO BID #0 tab 07/25/17 [Last Taken 08/30/17 09:00] oxyCODONE IR [Oxycodone Ir (*)] 5 - 10 mg PO Q4HRS PRN #0 tab 07/25/17 [Last Taken 08/30/17] Alteplase [Cathflo Activase 2 mg (*)] 2 mg IVP PRN PRN vial 09/03/17 [Last Taken Unknown] Enoxaparin [Lovenox 40 MG (*)] 40 mg SC DAILY syr 09/03/17 [Last Taken Unknown] Ondansetron HCl Pf [Zofran 4 mg Inj (*)] 4 mg IVP Q4HRS PRN vial 09/03/17 [ Last Taken Unknown] Ondansetron Odt [Zofran Odt 4 mg (*)] 4 mg PO Q4HRS PRN tab 09/03/17 [Last Taken Unknown] Piperacillin/Tazo 3.375 gm/Dex [Zosyn 3.375 gm (Premix)] 3.375 ml IV Q6H bag [Last Taken Unknown] Mcc Antibiotics: Zosyn 3.375gm q6h IV - last day is 10/17/2017 Supervisor Final Antibiotic Stop Date: 10/17/17 Discharge Medications: Refer to the Discharge Home Medication list for PRN reason. PICC Care - Routine: Yes - Orders Services needed: Registered Nurse, Master Hog Handler, Physical Therapy, Occupational Therapy Diet Recommendation: ADA 2200 consistent carb Diet Texture: Regular Texture Diet Activity/Weight Bearing Restrictions: activity as tolerated. - Labs/Radiology CBC Date: 09/04/17 (q mondays) CMP Date: 09/04/17 (q mondays) CRP Date: 09/04/17 (q mondays) Call or Fax Lab and Imaging Results to: Dr. SummersVolp-[phone] - Follow Up Care Current Providers and Referrals: Tin Hess MD [Medical Doctor] - (as planned) Andrew Summers MD [Medical Doctor] - follow up in 10 days ZEYAD MONSIVAIS [Primary Care Provider] - follow up in 2 weeks Yuri Miranda MD [Medical Doctor] - 3-5 days
--- NOTE | 2017-09-03 15:11 | ASMTCMCOM ---
CM Note CM Note Notes: Updated interagency sent to Renetta at [facility] to reflect correct ANTB orders. CM available for further needs. Date Signed: 09/03/2017 03:10 PM Electronically Signed By:Casie Garg RN
--- NOTE | 2017-09-07 08:52 | PQFORM ---
PHYSICIAN QUERY FORM Needs Your Response This query form is being sent to you to assure this patient record is coded properly. Please respond to the question below: STRUCTURAL STEEL FITTER QUESTION: Dr Walls Patient admitted with Lumbar Epdiural Abscess. Sepsis is documented in the Progress Notes but not mentioned on the Discharge Summary. Please clarify patients diagnosis of: ___ Sepsis ___ Bacteremia _x__ Other DX (Please document she did not have sepsis when I was caring for her. It appears she had sepsis earlier on during her hospitalization , but not during the 2 days I was there.) ___ Unable to Determine Thank You Tatiana DIAZ [employer] INSTRUCTIONS FOR RESPONSE: Answer question by clicking on the "Edit Document" button. Move cursor to area below the stars. When complete, hit "Save." Click on the "Sign" button, then click "Sign" again. Type in your PIN and hit "Enter." MTDD
== END 2017-09-03 15:19 | DRG 862 ==
LOC: EDUNIT# → F1N 21:08
PROVIDERS: ADMIT Internal Medicine; ATTEND Internal Medicine
DX: T81.4XXA Infection following a procedure, initial encounter (principal); A41.81 Sepsis due to Enterococcus; G06.2 Extradural and subdural abscess, unspecified; Z98.1 Arthrodesis status; E11.40 Type 2 diabetes mellitus with diabetic neuropathy, unspecified; Z87.891 Personal history of nicotine dependence; Z98.84 Bariatric surgery status; Z94.0 Kidney transplant status
CPT/HCPCS: 96365; 97116-GP; 97161-GP; 97166-GO; 97530-GO; 97530-GP; 97535-GO; G8978-GP-CI; G8979-GP-CI; G8987-GO-CJ; G8988-GO-CI; G8989-GO-CI; J1642; J1650; J2543; J2997; J3370; J7507